=== PATIENT | male | born 1940 | race Caucasian/White ===

== ENCOUNTER 2018-06-28 14:57 | Emergency (ER) | payer MEDICARE ==
[2018-06-28] MEDS ORDERED: Acetaminophen TAB* 325 MG PO ONE (16:37)
[2018-06-28 17:43] VITALS: BP 144/90
[2018-06-28] MEDS ORDERED: Tetan/Diph/Pertus SYR(Tdap)* 0.5 ML SYR(BOOSTRIX) use SYR IM ONE ×2 (17:43→17:45)
--- NOTE | 2018-06-28 17:50 | ED ---
Adult Trauma - HPI Summary HPI Summary: A 77 y/o male accompanied by family presents to [facility] with a chief complaint of right shoulder pain post mechanical fall at 14:15 today. He reports that he is on bloodthinners. He denies CP, SOB, headaches or LOC. It is unknown when his last tetanus shot was. At triage he rated his pain as a 9/10 in severity. Vital signs while in room HR: 86 bpm, O2 Sat: 97, BP: 177/98. 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 of Injury: Fall Ambulatory at the Scene: Yes Loss of Consciousness: no loss of consciousness Onset/Duration: Started Hours Ago, Still Present Onset of Pain: Hours, Post Accident, Prior to Arrival Onset Severity: Severe Current Severity: Severe Pain Intensity: 9 Pain Scale Used: 0-10 Numeric Location: Other - right shoulder Character: Sharp Aggravating Factor(s): Nothing Alleviating Factor(s): Nothing Associated Signs & Symptoms: Negative: SOB, Chest Pain, Fever - Allergy/Home Medications Allergies/Adverse Reactions: Allergies Allergy/AdvReac Type Severity Reaction Status Date / Time ciprofloxacin Allergy Anaphylatic Verified 06/28/18 16:22 Shock Home Medications: Home Medications Aspirin 81 mg CHEW TAB* [Aspirin Low Dose TAB*] 81 mg PO DAILY 06/28/18 [ History Confirmed 06/28/18] PMH/Surg Hx/FS Hx/Imm Hx Endocrine/Hematology History: Reports: Hx Diabetes Denies: Hx Anticoagulant Therapy, Hx Thyroid Disease Cardiovascular History: Reports: Hx Hypertension Respiratory History: Denies: Hx Asthma, Hx Chronic Obstructive Pulmonary Disease (COPD) GI History: Denies: Hx Ulcer - Cancer History Cancer Type, Location and Year: prostate - Surgical History Surgery Procedure, Year, and Place: left hip replacement, left sided neck mole removal. hernia repair. Infectious Disease History: No Infectious Disease History: Denies: Hx Clostridium Difficile, Hx Hepatitis, Hx Human Immunodeficiency Virus (HIV), Hx of Known/Suspected MRSA, Hx Shingles, Hx Tuberculosis, Hx Known/ Suspected VRE, Hx Known/Suspected VRSA, History Other Infectious Disease, Traveled Outside the [place] in Last 30 Days - Social History Alcohol Use: None Substance Use Type: Reports: None Smoking Status (MU): Former Smoker Review of Systems Negative: Fever Negative: Chest Pain Negative: Shortness Of Breath Positive: Arthralgia - right sided shoulder pain Neurological: Negative - LOC Negative: Headache All Other Systems Reviewed And Are Negative: Yes Physical Exam - Summary Physical Exam Summary: GENERAL: Patient is a well-developed and nourished M who is lying comfortable in the stretcher. Patient is not in any acute respiratory distress. HEAD AND FACE: Normocephalic EYES: PERRLA, EOMI x 2. EARS: Hearing grossly intact. MOUTH: Oropharynx within normal limits. NECK: Supple, trachea is midline, no adenopathy, no JVD, no carotid bruit. CHEST: Symmetric, no tenderness at palpation LUNGS: Clear to auscultation bilaterally. No wheezing or crackles. CVS: Regular rate and rhythm, S1 and S2 present, no murmurs or gallops appreciated. ABDOMEN: Soft, non-tender. Bowel sounds are normal. No abdominal abnormal pulsations. EXTREMITIES: TTP right shoulder ROM limited secondary to pain, abrasion elbow, no edema, no cyanosis or clubbing. NEURO: Alert and oriented x 3. No acute neurological deficits. Speech is normal and follows commands. Triage Information Reviewed: Yes Vital Signs On Initial Exam: Initial Vitals Temp Pulse Resp BP Pulse Ox 98.7 F 92 18 155/91 98 06/28/18 15:03 06/28/18 15:03 06/28/18 15:03 06/28/18 15:03 06/28/18 15:03 Vital Signs Reviewed: Yes - Carlos Coma Scale Best Eye Response: 4 - Spontaneous Best Motor Response: 6 - Obeys Commands Best Verbal Response: 5 - Oriented Coma Scale Total: 15 Diagnostics - Vital Signs Vital Signs Temp Pulse Resp BP Pulse Ox 06/28/18 17:41 81 144/90 96 06/28/18 17:18 79 96 06/28/18 16:51 78 139/81 98 06/28/18 16:20 89 177/98 97 06/28/18 16:17 86 97 06/28/18 15:03 98.7 F 92 18 155/91 98 - Laboratory Lab Statement: Any lab studies that have been ordered have been reviewed, and results considered in the medical decision making process. - Radiology shoulder x-ray Radiology Interpretation Completed By: Radiologist Summary of Radiographic Findings: AC joint arthritis without fracture. ED physician has reviewed this imaging report. - CT Brain CT Interpretation Completed By: Radiologist Summary of CT Findings: NO EVIDENCE FOR ACUTE INTRACRANIAL ABNORMALITY. ED physician has reviewed this imaging report. upper extremity CT Interpretation Completed By: Radiologist Summary of CT Findings: 1. SUPERIOR SUBLUXATION OF THE HUMERAL HEAD LIKELY RELATED TO UNDERLYING ROTATOR CUFF. TEAR. THIS CAN BE FURTHER EVALUATED WITH AN OUTPATIENT MRI OF THE SHOULDER CLINICALLY. NEEDED. 2. NO FRACTURE IS SEEN. 3. MODERATE OSTEOARTHRITIC CHANGE. 4. 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 ED physician has reviewed this imaging report. Re-Evaluation - Re-Evaluation First Eval Re-Evaluation Time: 17:50 Change: Improved Comment: Discussed results and discharge Adult Trauma Course/Dx - Course Course Of Treatment: A 77 y/o male accompanied by family presents to [facility] with a chief complaint of right shoulder pain post mechanical fall at 14:15 today, The physical exam revealed TTP right shoulder ROM limited secondary to pain, abrasion elbow. Brain CT impression: NO EVIDENCE FOR ACUTE INTRACRANIAL ABNORMALITY. Shoulder x-ray impression: AC joint arthritis without fracture. Upper extremity CT impression: 1. SUPERIOR SUBLUXATION OF THE HUMERAL HEAD LIKELY RELATED TO UNDERLYING ROTATOR CUFF. TEAR. THIS CAN BE FURTHER EVALUATED WITH AN OUTPATIENT MRI OF THE SHOULDER CLINICALLY. NEEDED. 2. NO FRACTURE IS SEEN. 3. MODERATE OSTEOARTHRITIC CHANGE. 4. 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 In the ED course the patient was given Tylenol PO and Boostrix IM. The patient will be discharged. I discussed results with patient and he reports feeling better. He is hemodynamically stable and safe for discharge. Strict return precautions given and he will otherwise follow up with his PCP. - Diagnoses Provider Diagnoses: Rotator cuff tear Discharge - Sign-Out/Discharge Documenting (check all that apply): Patient Departure - DC Patient Received Moderate/Deep Sedation with Procedure: No - Discharge Plan Condition: Stable Disposition: HOME Patient Education Materials: Rotator Cuff Injury (ED) Referrals: Carter Greco MD [Medical Doctor] - Hira Duran MD [Primary Care Provider] - (1-3 days) Additional Instructions: Follow up with orthopedics. RETURN TO THE EMERGENCY DEPARTMENT FOR CHANGING OR WORSENING SYMPTOMS. - Billing Disposition and Condition Condition: STABLE Disposition: Home - Attestation Statements Document Initiated by Scribe: Yes Documenting Scribe: Ruperto Hernandez Provider For Whom Scribe is Documenting (Include Credential): Km Bishop MD Scribe Attestation: I, Ruperto Hernandez, scribed for Km Bishop MD on 06/29/18 at 0924. Scribe Documentation Reviewed: Yes Provider Attestation: The documentation as recorded by the [email or web address] accurately reflects the service I personally performed and the decisions made by me, Sekou Bishop MD Status of Scribe Document: Viewed
== END 2018-06-28 18:04 | disposition home or self-care (01) ==
LOC: ED 14:57
DX: M75.101 Unspecified rotator cuff tear or rupture of right shoulder, not specified as traumatic (principal); Z79.82 Long term (current) use of aspirin; E11.9 Type 2 diabetes mellitus without complications; I10 Essential (primary) hypertension; Z85.46 Personal history of malignant neoplasm of prostate; Z87.891 Personal history of nicotine dependence; Z23 Encounter for immunization
CPT/HCPCS: 70450; 90471; 90715; 99283; A9270-GY

== ENCOUNTER 2018-07-07 08:33 | Inpatient (IN) | payer MEDICARE ==
[2018-07-07] MEDS ORDERED: NS 0.9% 1000 ML** 1,000 ML IV ONE (09:18)
--- NOTE | 2018-07-07 09:21 | ED ---
Complex/Multi-Sys Presentation - HPI Summary HPI Summary: PT. is a 77 y.o male who presents to the ER for general fatigue and cough x several days. Family states pt. was seen in ED last week after a fall and has not been feeling well since. He was seen at an a few days ago and had a negative CXR and was started on doxycycline. Family brings pt in today because he is feeling no better and has been very weak with a poor oral intake. Pt. denies CP, SOB, abd. pain, V/D, urinary sxs. Past hx of sarcoidosis, DM, HTN. Sxs are moderate in severity. No current modifying factors. - History Of Current Complaint Chief Complaint: EDGeneral Time Seen by Provider: 07/07/18 08:44 Hx Obtained From: Patient, Family/Twister Tender - Allergies/Home Medications Allergies/Adverse Reactions: Allergies Allergy/AdvReac Type Severity Reaction Status Date / Time ciprofloxacin Allergy Anaphylatic Verified 07/07/18 08:41 Shock Home Medications: Home Medications Atorvastatin* [Lipitor*] 40 mg PO DAILY 07/07/18 [History Confirmed 07/07/18] Calcium Carbonate/Vitamin D3 [Calcium 600 + Vit D Tablet] 1 each PO DAILY [History Confirmed 07/07/18] Doxycycline Hyclate 100 mg PO DAILY 07/07/18 [History Confirmed 07/07/18] PMH/Surg Hx/FS Hx/Imm Hx Previously Healthy: Yes Endocrine/Hematology History: Reports: Hx Diabetes Denies: Hx Anticoagulant Therapy, Hx Thyroid Disease Cardiovascular History: Reports: Hx Hypertension Respiratory History: Denies: Hx Asthma, Hx Chronic Obstructive Pulmonary Disease (COPD) GI History: Denies: Hx Ulcer - Cancer History Cancer Type, Location and Year: prostate - Surgical History Surgery Procedure, Year, and Place: left hip replacement, left sided neck mole removal. hernia repair. Infectious Disease History: No Infectious Disease History: Denies: Hx Clostridium Difficile, Hx Hepatitis, Hx Human Immunodeficiency Virus (HIV), Hx of Known/Suspected MRSA, Hx Shingles, Hx Tuberculosis, Hx Known/ Suspected VRE, Hx Known/Suspected VRSA, History Other Infectious Disease, Traveled Outside the [place] in Last 30 Days - Family History Known Family History: Positive: Non-Contributory - Social History Occupation: Retired Lives: With Family Alcohol Use: None Substance Use Type: Reports: None Smoking Status (MU): Former Smoker Review of Systems Constitutional: Negative Eyes: Negative ENT: Negative Cardiovascular: Negative Negative: Chest Pain Positive: Cough. Negative: Shortness Of Breath Gastrointestinal: Negative Negative: Abdominal Pain, Vomiting, Diarrhea Genitourinary: Negative Positive: Other - shoulder pain from recent fall Skin: Negative Neurological: Negative Negative: Headache, Weakness, Paresthesia, Numbness, Syncope, Slurred Speech All Other Systems Reviewed And Are Negative: Yes Physical Exam Vital Signs On Initial Exam: Initial Vitals Temp Pulse Resp BP Pulse Ox 97.9 F 98 16 144/93 95 07/07/18 08:35 07/07/18 08:35 07/07/18 08:35 07/07/18 08:35 07/07/18 08:35 Diagnostics - Vital Signs Vital Signs Temp Pulse Resp BP Pulse Ox 07/07/18 08:35 97.9 F 98 16 144/93 95 - Laboratory Result Diagrams: 07/09/18 06:45 07/09/18 06:45 Lab Statement: Any lab studies that have been ordered have been reviewed, and results considered in the medical decision making process. Complex Multi-Symp Course/Dx Course Of Treatment: Pt. presenting for worsening cough and weakness. He is afebrile with stable VS. Pt. started on IV fluids. Labs show mild leukocytosis. CMP shows signficant electrolyte imbalance, Na 120, Cl 87, Ca 7.6. Ddimeer elevated. CXR shows right sided infiltrate. ECG done at 1016 shows afib at a rate of 118bpm, normal axis, no STEMI. CTA obtained to r/o PE and was negative for PE. Pt. was given IV rocephin and zithromax in ED. I spoke with hospitalist , Dr. Sotomayor, and she accepts pt. for admission. - Diagnoses Differential Diagnoses/HQI/PQRI: Aspiration, Cardiac Ischemia, Metabolic Abnormality, Sepsis, Urinary Tract Infection Provider Diagnoses: Hyponatremia, Pneumonia - Critical Care Time Critical Care Time: 30-74 min - 30 minutes including direct pt. care and consultation. Excludes billable procedures. Discharge - Sign-Out/Discharge Documenting (check all that apply): Patient Departure Patient Received Moderate/Deep Sedation with Procedure: No - Discharge Plan Condition: Stable Disposition: ADMITTED TO [facility] - Billing Disposition and Condition Condition: STABLE Disposition: Admitted to [facility] - Attestation Statements Provider Attestation: I was available for consult. This patient was seen by the MAME. The patient was not presented to, seen by, or examined by me. -Sabine
[2018-07-07 10:00] LABS: ABS Basophils 0 10^3/ul (0-0.2); ABS Eosinophils 0 10^3/ul (0-0.6); ABS Lymphocytes 0.6 10^3/ul (1.0-4.8); ABS Monocytes 0.9 10^3/ul (0-0.8); ABS Neutrophils 10.2 10^3/ul (1.5-7.7); ABS Nucleated RBC 0 10^3/ul; Eosinophil % 0.1 %; Hematocrit 35 % (36-46); Hemoglobin 11.8 g/dL (14.0-18.0); Lymphocyte % 5.2 %; Mean Corpuscular HGB Conc 34 g/dL (31-36); Mean Corpuscular Hemoglobin 29 pg (27-31); Mean Corpuscular Volume 88 fL (80-94); Mean Platelet Volume 7.4 fL (7.4-10.4); Nucleated Red Blood Cells % 0.1; Platelet Count 408 10^3/uL (150-450); Red Blood Count 4.01 10^6 /uL (4.18-5.48); Red Cell Distribution Width 14 % (10.5-15); White Blood Count 11.8 10^3/uL (3.5-10.8)
[2018-07-07 10:05] LABS: Activated Partial Thrombo Time 36.6 seconds (26.0-36.3); INR 2.07 (0.77-1.02)
[2018-07-07 10:09] LABS: ALT 198 U/L (7-52); AST 181 U/L (13-39); Albumin 2.8 g/dL (3.2-5.2); Albumin/Globulin Ratio 0.9 (1-3); Alkaline Phosphatase 91 U/L (34-104); BUN/Creatinine Ratio 34.5 (8-20); Blood Urea Nitrogen 30 mg/dL (6-24); CO2 Carbon Dioxide 22 mmol/L (22-32); Calcium 8.2 mg/dL (8.6-10.3); Chloride 85 mmol/L (101-111); EGFR African American 102.4 (>60); EGFR Non-African American 84.6 (>60); Globulin 3.2 g/dL (2-4); Glucose 313 mg/dL (70-100); Magnesium 1.2 mg/dL (1.9-2.7); Potassium 3.8 mmol/L (3.5-5.0)
[2018-07-07] MEDS ORDERED: ED cefTRIAXone 1 GM/50 ML 1 GM/50 ML PREMIX.SET IVPB ONE (10:09)
[2018-07-07] MEDS ORDERED: Azithromycin 500 mg/250 ml 500 MG/250 ML PREMIX.SET IVPB ONE ×2 (10:09→11:12)
[2018-07-07] MEDS ORDERED: Magnesium Oxide TAB* 400 MG PO ONE (10:12)
[2018-07-07 10:14] LABS: Anion Gap 12 mmol/L (2-11); Sodium 119 mmol/L (135-145)
[2018-07-07 10:14] LABS: Influenza A Molecular NEGATIVE (Negative); Influenza B Molecular NEGATIVE (Negative)
[2018-07-07] MEDS ORDERED: Iodixanol* (CONTRAST) 320 MG/ML 100 ML SDV IV ONE ×2 (10:17→13:46)
[2018-07-07] MEDS ORDERED: NS 0.9% 1000 ML** 400 ML IV SCH (11:00)
[2018-07-07] MEDS ORDERED: cefTRIAXone(*) 1 GM ADVAN/BAG ONE (11:11)
[2018-07-07 11:35] LABS: Troponin I 0.04 ng/mL (<0.04)
[2018-07-07 12:14] LABS: BUN/Creatinine Ratio 39.1 (8-20); Calcium 7.7 mg/dL (8.6-10.3); EGFR African American 133.8 (>60); EGFR Non-African American 110.6 (>60); Potassium 3.6 mmol/L (3.5-5.0)
[2018-07-07] MEDS ORDERED: Acetaminophen TAB* 325 MG PO PRN (14:03)
[2018-07-07] MEDS ORDERED: Dextrose 50% Syringe 50 ML* 25 GM/50 ML SYRINGE IV PUSH PRN (14:05)
[2018-07-07] MEDS: Enoxaparin(*) 40 MG/0.4 ML SYR SUBCUT SCH (16:24)
[2018-07-07 16:27] LABS: Troponin I 0.01 ng/mL (<0.04)
[2018-07-07 16:36] LABS: Anion Gap 8 mmol/L (2-11); BUN/Creatinine Ratio 36.9 (8-20); Blood Urea Nitrogen 24 mg/dL (6-24); C Reactive Protein 231.31 mg/L (<8.01); CO2 Carbon Dioxide 25 mmol/L (22-32); Calcium 7.9 mg/dL (8.6-10.3); Chloride 87 mmol/L (101-111); EGFR African American 143.4 (>60); EGFR Non-African American 118.5 (>60); Glucose 183 mg/dL (70-100); Potassium 3.4 mmol/L (3.5-5.0); Sodium 120 mmol/L (135-145)
[2018-07-07 16:49] LABS: % Iron Saturation 17 % (15-55); Iron 31 ug/dL (50-212); Total Iron Binding Capacity 186 mcg/dL (250-450); Transferrin 133 mg/dL (203-362)
[2018-07-07 16:55] LABS: TSH (Thyroid Stimulating Horm) 0.77 mcIU/mL (0.34-5.60)
[2018-07-07 17:06] LABS: Vitamin D Total 25(OH) 23.8 ng/mL (20-50)
[2018-07-07] MEDS: Insulin LISPRO* 1 UNITS UNIT SUBCUT SCH ×2 (18:12→21:14)
--- NOTE | 2018-07-07 19:26 | HP ---
HISTORY AND PHYSICAL: DATE OF ADMISSION: 07/07/18 PRIMARY CARE PROVIDER: Dr. Hira Duran. CHIEF COMPLAINT: Shortness of breath and cough. STRATEGIC ANALYST: Carissa Hernandez, his . CODE STATUS: Full. SOURCE OF INFORMATION: HPI is obtained from the patient and review of history. He is an adequate historian. HISTORY OF PRESENT ILLNESS: This is a 77-year-old male with a past medical history of sow-adfnmeg-npcjlcidb diabetes; hypertension; hyperlipidemia; atrial fibrillation, on anticoagulation; prostate cancer, status post radiation; melanoma, status post excision only; sarcoid diagnosis received 22 years ago, presumed to be quiescent and in remission as he has never received a treatment, who presented to the emergency room today with hemoptysis and cough, chest pain for 4 days. The patient and his said he has about a 7-day period of decline since the fall that occurred exactly a week ago. He said that he was carrying coal into the house and tripped and fell and actually had presented to the emergency room at that time and had a dislocated right shoulder. He went home and has basically had a poor appetite ever since. He assumed it was all from his shoulder pain, but about 4 days ago, he started having hiccups and a scant cough and then the cough continued to the point where it was barking and frequent. He went to [facility], who said that he most likely had an upper respiratory infection and then 1 day prior to admission, his cough and fatigue worsened and he actually had 1 episode of scant hemoptysis in his clear and yellow mixed sputum. The day after this occurred, they decided to present to the emergency room. On review of systems, he does endorse weakness and fatigue. No headaches. No vision changes. He does endorse difficulty swallowing. No chest pain. No palpitations. No orthopnea. Positive for cough. Negative pleuritic chest pain. Negative for nausea, vomiting, diarrhea , or abdominal pain. It is positive for hiccups. No dysuria or hematuria. No skin changes. Denies subjective fevers or chills in the home. No new neurologic complaints such as differences in sensation or weakness in any specific limb. EMERGENCY ROOM COURSE: The patient arrived with stable vital signs. Blood pressure 133/79; afebrile; heart rate, atrial fibrillation with rate in the low 100s. Labs showed a sodium to 119 with a glucose of 339 which corrects to 124, chloride 85, creatinine stable, glucose 313. Also had a new transaminitis with AST 181, ALT 198, alk phos 91. Initial troponin was elevated mildly at 0.04. Total protein and albumin are low at 6 and 2.8. Flu is negative. Rapid strep was negative. His D-dimer was collected for the hemoptysis and was elevated at greater than 1000. His INR is elevated at 2. ESR is mildly elevated at 10.2. Has mild leukocytosis to 11.8 and H and H is 11.8 and 35. CTA was performed secondary to the hemoptysis and positive D-dimer, which shows bilateral broncho- lobar pneumonia and also sarcoid stage 2. The chest x-ray was completed, which shows patchy infiltrate to bilateral lower lobes. EKG was done, which showed atrial fibrillation with no active signs of ischemia. The hospitalist team was asked to evaluate him for further treatment and plan. PAST MEDICAL HISTORY: Yrl-yrtiscv-hubgcugje diabetes; hypertension; hyperlipidemia; atrial fibrillation, on anticoagulation; prostate cancer, status post radiation; melanoma, status post excision; sarcoidosis diagnosed 22 years ago, presumed to be in remission and quiescent. PAST SURGICAL HISTORY: Status post left total hip, status post hernia repair, status post melanoma excision on left neck. ALLERGIES: Include allergy to FLUOROQUINOLONES. FAMILY HISTORY: His father from a stroke. His mother is ; she had a history of CAD and uterine cancer. SOCIAL HISTORY: He is a retired otr owner operator truck driver. He lives at home with his . Tobacco: He is a lifetime nontobacco user. Alcohol: He is a scant-to-no alcohol user. Illicits: Denies. REVIEW OF SYSTEMS: As per HPI. PHYSICAL EXAMINATION GENERAL APPEARANCE: This is a very pleasant, well-appearing man, sitting up in bed, in no acute distress. VITAL SIGNS: At the time of physical exam, a blood pressure of 138/83, pulse rate of 106, oxygen saturation is 94% on room air, respiratory rate is in the teens. HEENT: He is normocephalic, atraumatic. His pupils are equal and reactive. His extraocular muscles are intact. His oropharynx shows dry mucous membranes with no other lesions. NECK: Supple with no supraclavicular or cervical lymphadenopathy. LUNGS: He has normal work of breathing. He has bilateral crackles to mid lungs and no rhonchi, wheezes, referred upper airway sounds. CARDIAC: He is irregularly irregular with no murmurs, rubs, or gallops. ABDOMEN: Belly is soft, nontender, nondistended. A 7 cm span liver. Normoactive bowel sounds in all 4 quadrants. No evidence of hepatosplenomegaly or signs of decompensated liver disease. MUSCULOSKELETAL: He moves all 4 extremities spontaneously with the exception of right shoulder, which as per HPI has recent subluxation. NEUROLOGIC: His cranial nerves II through XII are intact. He is A and O x3. He has no focal neurologic deficits on gross neuro exam. SKIN: He has scattered seborrheic keratosis, but no other obvious rashes or lesions. DIAGNOSTIC STUDIES/LAB DATA: He has a CBC that shows white blood cell count 11.8, hemoglobin 11.8, hematocrit 35, platelets of 408. INR is 2.07, APTT is 36 , D-dimer is 1047. Sodium is 121, potassium is 3.6, chloride 88, carbon dioxide is 22, anion gap is 11, BUN is 27, creatinine 0.69, glucose 244. Hemoglobin A1c is 7.8, calcium is 7.7. AST is 181, ALT is 198, alkaline phosphatase is 91. Troponin I is 0.04. Magnesium 1.2. Total protein 6, albumin is 2.8. Flu is negative and rapid strep is negative. Imaging includes a chest x-ray, which shows bilateral infiltrates with right mid greater than left, superimposed on sarcoidosis. CTA was performed, which showed no pulmonary embolus, but did show bronchopneumonia superimposed on stage 2 sarcoidosis, also a small left dependent pleural effusion. EKG showed atrial fibrillation with no evidence of ischemia. All images, labs, and electrocardiogram are reviewed by myself. ASSESSMENT AND PLAN: This is a 77-year-old male with a history of diabetes; hypertension; atrial fibrillation, on anticoagulation; distant history of prostate cancer and melanoma and distant history of sarcoid, presumed quiescent , who is presenting to the emergency room with hemoptysis and cough, found to have bilateral pneumonia, hyponatremia, new transaminitis and a mild troponin elevation. 1. Pneumonia. The patient displays bronchopneumonia with leukocytosis. He had received ceftriaxone and azithromycin in the emergency room. We will continue this for presumed community-acquired pneumonia. Blood cultures were obtained. Urine Legionella and urine Strep pneumo antigen were sent. The patient does not have an oxygen requirement. We will continue to monitor. 2. Hyponatremia. Currently hyponatremia to 124. He is status post 1.5 L in the emergency room and is not responsive after 4 hours. This is more concerning for SIADH. We will obtain urinalysis and urine sodium and repeat BMP to determine if this is hypovolemic on SIADH or both. He has known pulmonary disease, which can cause SIADH. 3. Transaminitis. This is new to AST and ALT in the 100s. We will order a CT of the abdomen and pelvis with contrast to eval for hepatic sarcoid or any other pathology. We also seen a hep panel and iron panel. This is a non- cholestatic pattern and no concern for gallbladder or pancreatic pathology. 4. Sarcoid. This is presumed quiescent. We will check for baseline labs, TSH , vitamin D 125. Pulmonary consult was placed to determine if there is a component of sarcoid flare in this current presentation of pneumonia. We will hold on starting steroids at this time. 5. Hyperglycemia and diabetes. We will check an A1c and place him on point-of - care glucose and lispro sliding scale while in the hospital while holding metformin and glipizide. 6. Atrial fibrillation, on anticoagulation. Continue rate control. We are going to hold his Xarelto for 1 day to determine the frequency of his hemoptysis to determine if it is frequent enough to warrant holding all a.c. together, but would consider resuming on 07/08/18. We will place on subcu Lovenox as a temporizing measure. 7. Elevated troponin. Mild elevation in troponin on admission that without EKG changes most consistent with demand ischemia. We will trend trops while he is here and if elevated, we will consider echocardiogram. 8. Prostate cancer and melanoma history. He has no active concerns for new oncologic process at this time, though ongoing workup will be continued and thus we will consider these have no active issues. 9. DVT prophylaxis. As above. He will be placed on xto-qppcnotlw-rmuoyz heparin until the decision to restart his Xarelto has been made. 10. Diet. He is on a carb-consistent diet. 11. Code status. He is full code. 12. Disposition. This patient is stable for admission to medical floor [address] [place] [address]. Plan of care was reviewed by the patient and his family and they are in agreeance with plan of care. TIME SPENT: Forty five minutes were spent in the planning of this admission and H and P with over half of that spent directly at the bedside with the patient, providing direct patient care. [id number]/CPS #: [id number] JUDITHD
[2018-07-07] MEDS ORDERED: Al Hydrox/Mg Hydrox/Simet LIQ* 30 ML UDC PO PRN (19:48)
--- NOTE | 2018-07-07 19:58 | CONS ---
PULMONARY CONSULTATION REPORT: DATE OF CONSULT: 07/07/18 - ROOM #407 CONSULTATION REQUESTED BY: Dr. Zainab Sotomayor. REASON FOR CONSULT: Evaluation of abnormal CT chest. HISTORY OF PRESENT ILLNESS: The patient is a 77-year-old male, former smoker, with history of sarcoidosis, melanoma, prostate cancer. The patient was brought in by family for evaluation of cough and hemoptysis. The patient has been having cough for the past 4 to 5 days. No fevers or chills. Cough is productive of thick phlegm. He was noted to have streaks of blood in the cough and he was taken to the urgent care. He was sent to the emergency room from the urgent care. Further evaluation in the emergency room included chest x-ray and CTA of the chest. I personally reviewed chest x-ray with the patient and family today - the patient with airspace opacities predominantly in the right lung. CTA did not reveal any evidence of filling defects, showed evidence of diffuse airspace opacities in the mid and lower lung zones with areas of dense consolidation. Multiple mediastinal and hilar nodes, some with calcification were seen. I have compared the scan with his prior CT from 2006. The patient at that time noted to have nodular densities bilaterally, some in the subpleural region. The patient also with significant mediastinal adenopathy and some calcified lymphadenopathy at that time. The patient also noted to have elevated white count and anemia with hemoglobin of 11.8. His sodium was 111 when he came in and was initiated on IV hydration. Repeat sodium shown to be around 121. The patient also with evidence of elevated AST and ALT. Alk phos was within normal limits. His calcium was low. Hemoglobin A1c was elevated. The patient was initiated on antibiotics for community-acquired pneumonia. He was admitted for close observation. He does not appear to be in any significant distress. Has not been requiring oxygen. PAST MEDICAL HISTORY: 1. Diabetes. 2. Hypertension. 3. Sarcoidosis. 4. Prostate cancer. 5. Melanoma. PAST SURGICAL HISTORY: 1. Left hip replacement. 2. Left-sided mole removal. 3. Hernia repair. MEDICATIONS AT HOME: 1. Metformin. 2. Glipizide. 3. Amlodipine. 4. Rivaroxaban. 5. Multivitamins. 6. Metoprolol. 7. Magnesium citrate. 8. Lisinopril. 9. Doxycycline, recently started in the urgent care. 10. Calcium and vitamin D3. 11. Lipitor. 12. Aspirin. 13. Acetaminophen. ALLERGIES: CIPROFLOXACIN. FAMILY HISTORY: Reviewed and noncontributory to current complaint. SOCIAL HISTORY: Former smoker. No history of alcohol or drug abuse. REVIEW OF SYSTEMS: All 14 systems reviewed and as per HPI. PHYSICAL EXAM: The patient is sitting in bed, in no apparent distress. Vital Signs: Temperature 98.8, pulse 117 beats per minute, respiratory rate 18 per minute, O2 sat 92% on room air, blood pressure 128/85. HEENT: Pupils equal, reactive to light. Mucous membranes moist. Lungs: Distant breath sounds. No wheeze or crackles on auscultation. Cardiovascular: S1, S2 present. Abdomen: Soft, nontender, nondistended. Bowel sounds present. Skin: No rash or bruise. Neuro: Alert, awake, oriented x3. No focal deficits. DIAGNOSTIC STUDIES/LAB DATA: WBC count 11.8, hemoglobin 11.8, hematocrit 35 with normal MCV. INR elevated at 2.07. Sodium 121 on repeat labs, potassium 3.6, chloride 88, bicarb 22, BUN 27, creatinine 0.69. Calcium 8.2 on admission , around 7.9 on repeat labs. CRP 231. Troponin x1 elevated. Influenza A and B negative. Group B strep negative. CTA and chest x-ray as described above. Abdominal CT did reveal evidence of steatohepatitis without any hepatic lesions and evidence of diverticulosis. IMPRESSION AND RECOMMENDATIONS: 77-year-old male with prior history of sarcoidosis diagnosed 22 years ago after a biopsy as per the patient's , could not provide any further details; history of prior prostate cancer, status post radiation; history of melanoma, status post resection. The patient did not require treatment for sarcoidosis as per the patient's . He has been having cough recently. He recently had a fall on 06/28/18 where he hit and injured his chest and also hit his head. X-rays at that time did not reveal any fractures. The patient with cough over the past 4 to 5 days since the fall and also with an episode of hemoptysis. CT findings suggestive of airspace opacities bilaterally, unclear if pneumonia or reactivation of sarcoidosis. Given the history of trauma, also suspect possible lung contusion. The patient appears to be stable other than being little bit tachycardic. Denies significant pain or difficulty taking deep breaths. Oxygen saturation around 92% on room air. He has mild anemia. He has elevated LFTs of unclear etiology. I do not see any other evidence of sarcoidosis extra pulmonary ibarra at least with normal calcium levels and also with normal alk phos. If sarcoid were to involve liver, it would also cause elevated alk phos. CRP is definitely elevated , which could be from underlying infection. Troponin normalized. He does have significant hyponatremia of unclear etiology, could be from underlying pneumonia and resultant syndrome of inappropriate antidiuretic hormone secretion. He is not on any medications that would result in hyponatremia. Would manage as pneumonia and would continue with that treatment. Hold anticoagulation for now. Would repeat a CT scan in 6 weeks to ensure resolution. If findings are still noted, then would need a repeat biopsy for sarcoidosis and subsequent treatment. Thank you for allowing me to participate in the care of your patient. Will follow up with you. [id number] #: [id number] CHARLI
[2018-07-07] MEDS: Metoprolol Tartrate TAB* 25 MG PO SCH (21:11)
[2018-07-07] MEDS: Potassium Chlor TAB* 20 MEQ TAB.ER PO SCH (21:11)
[2018-07-07 22:19] LABS: Urine Appearance Cloudy; Urine Bacteria Absent (Absent); Urine Bilirubin Negative (Negative); Urine Blood Negative (Negative); Urine Color Yellow; Urine Glucose 2+(150 mg/dL) (Negative); Urine Ketones Negative (Negative); Urine Nitrite Negative (Negative); Urine Protein 2+(100 mg/dL) (Negative); Urine Red Blood Cell 1+(3-5/hpf) (Absent); Urine Specific Gravity 1.045 (1.010-1.030); Urine Urobilinogen Negative (Negative); Urine White Blood Cell Absent (Absent)
[2018-07-07 22:23] LABS: Urine Creatinine Concentration 70.65 mg/dL; Urine Potassium Concentration 34.5 mmol/L
[2018-07-08 05:56] LABS: ABS Basophils 0 10^3/ul (0-0.2); ABS Eosinophils 0 10^3/ul (0-0.6); ABS Lymphocytes 0.8 10^3/ul (1.0-4.8); ABS Monocytes 1.2 10^3/ul (0-0.8); ABS Neutrophils 9.4 10^3/ul (1.5-7.7); ABS Nucleated RBC 0 10^3/ul; Eosinophil % 0.2 %; Hematocrit 35 % (36-46); Lymphocyte % 6.9 %; Mean Corpuscular HGB Conc 34 g/dL (31-36); Mean Corpuscular Hemoglobin 30 pg (27-31); Mean Corpuscular Volume 88 fL (80-94); Mean Platelet Volume 7.5 fL (7.4-10.4); Nucleated Red Blood Cells % 0; Platelet Count 410 10^3/uL (150-450); Red Blood Count 3.99 10^6 /uL (4.18-5.48); Red Cell Distribution Width 14 % (10.5-15); White Blood Count 11.4 10^3/uL (3.5-10.8)
[2018-07-08 06:17] LABS: Albumin 2.7 g/dL (3.2-5.2); Albumin/Globulin Ratio 0.8 (1-3); BUN/Creatinine Ratio 30.2 (8-20); Calcium 7.9 mg/dL (8.6-10.3); EGFR African American 148.7 (>60); EGFR Non-African American 122.9 (>60); Globulin 3.2 g/dL (2-4); Indirect Bilirubin 0.5 mg/dL (0.3-1.0); Potassium 3.7 mmol/L (3.5-5.0); Total Bilirubin 0.7 mg/dL (0.2-1.0); Total Protein 5.9 g/dL (6.4-8.9)
[2018-07-08] MEDS: Insulin LISPRO* 1 UNITS UNIT SUBCUT SCH ×4 (08:39→21:33)
[2018-07-08] MEDS: Aspirin 81 mg CHEW TAB* 81 MG TAB.CHEW PO SCH (08:40)
[2018-07-08] MEDS: Potassium Chlor TAB* 20 MEQ TAB.ER PO SCH ×2 (08:40→21:32)
[2018-07-08] MEDS: Atorvastatin* 40 MG TAB PO SCH (08:40)
[2018-07-08] MEDS: Metoprolol Tartrate TAB* 25 MG PO SCH ×2 (08:40→21:32)
[2018-07-08] MEDS: Lisinopril TAB* 10 MG PO SCH (08:40)
[2018-07-08] MEDS ORDERED: amLODIPine TAB* 5 MG PO SCH (09:00)
[2018-07-08] MEDS: Azithromycin IV(*) 250 MG in NS 0.9% 250 ML* 250 ML IVPB SCH (09:25)
[2018-07-08 10:47] LABS: Hepatitis B Surface Antigen Nonreactive (Nonreactive)
[2018-07-08 11:03] LABS: Hepatitis C Antibody Nonreactive (Nonreactive)
[2018-07-08] MEDS: cefTRIAXone(*) 1 GM in NS 0.9% 50 ML* 50 ML IVPB SCH (15:30)
--- NOTE | 2018-07-08 16:18 | PN ---
Subjective Interval History: Sodium unchanged. Starting on fluid restriction today. reports pt has a history of low sodium that "didn't need treatment". Pt and (at bedside) report that patient is back at his baseline except for persistent fatigue. No fever or recent episodes of hemoptysis. Pt reports good appetite - denies n/v/c/d. No recent supplements, new medications, alcohol use. Given recent fall with shoulder pain, and now not using dominant arm, will have pt seen by OT. Also will be seen by PT given h/o fall. Objective Active Medications: Acetaminophen (Tylenol Tab*) 650 mg PO Q6HR PRN PRN Reason: PAIN Al Hydrox/Mg Hydrox/Simethicone (Maalox Plus*) 30 ml PO Q4H PRN PRN Reason: INDIGESTION Last Admin: 07/07/18 21:11 Dose: 30 ml Amlodipine Besylate (Norvasc Tab*) 5 mg PO DAILY [facility] [place] Last Admin: 07/08/18 08:40 Dose: 5 mg Aspirin (Aspirin 81 Mg Chew Tab*) 81 mg PO DAILY [facility] [place] Last Admin: 07/08/18 08:40 Dose: 81 mg Atorvastatin Calcium (Lipitor*) 40 mg PO DAILY [facility] [place] Last Admin: 07/08/18 08:40 Dose: 40 mg Dextrose (D50w Syringe 50 Ml*) 12.5 gm IV PUSH .FOR FS < 60 - SS PRN PRN Reason: FS < 60 Ceftriaxone Sodium 1 gm/ (Sodium Chloride) 50 mls @ 200 mls/hr IVPB Q24H [facility] [place] Last Admin: 07/08/18 15:30 Dose: 200 mls/hr Azithromycin 250 mg/ Sodium (Chloride) 250 mls @ 250 mls/hr IVPB DAILY [facility] [place] Stop: 07/12/18 08:59 Last Admin: 07/08/18 09:25 Dose: 250 mls/hr Insulin Glargine (Lantus(*)) 5 units SUBCUT Q24H [facility] [place] Insulin Human Lispro (Humalog*) 0 units SUBCUT ACHS [facility] [place]; Protocol Last Admin: 07/08/18 13:10 Dose: 6 units Lisinopril (Prinivil Tab*) 40 mg PO DAILY [facility] [place] Last Admin: 07/08/18 08:40 Dose: 40 mg Metoprolol Tartrate (Lopressor Tab*) 25 mg PO BID [facility] [place] Last Admin: 07/08/18 08:40 Dose: 25 mg Potassium Chloride (Klor Con Er Tab*) 20 meq PO BID [facility] [place] Last Admin: 07/08/18 08:40 Dose: 20 meq Rivaroxaban (Xarelto(*)) 20 mg PO DAILY [facility] [place] Vital Signs - 8 hr 07/08/18 11:15 Temperature 98.0 F Pulse Rate 67 Respiratory 20 Rate Blood Pressure 151/96 (mmHg) O2 Sat by Pulse 96 Oximetry Oxygen Devices in Use Now: None Appearance: reclining comfortably in bed chatting with Ears/Nose/Mouth/Throat: Mucous Membranes Moist Neck: NL Appearance and Movements; NL JVP Respiratory: - - bibasilar crackles, no wheeze, no accessory muscle use Cardiovascular: - - irreg irreg, no mgr Abdominal: - - soft, nontender, no guarding, negative Givens's sign Extremities: - - no LE edema, wwp Neurological: - - AOx3 although a little confused at times; appropriate responses; will not elevated R arm but sensation/strength intact distally Result Diagrams: 07/08/18 05:31 07/08/18 05:31 Microbiology and Other Data: Microbiology 07/07/18 13:33 Aerobic Blood Culture - Preliminary Blood Venous No Growth Day 1 Anaerobic Blood Culture - Preliminary No Growth Day 1 07/07/18 09:37 Group A Streptococcus Rapid Screen - Final Throat Specimen received for Rapid Strep A Molecular testing 07/07/18 09:37 Influenza Types A,B Antigen - Final Nasopharyngeal Specimen received for Influenza A/B Molecular testing Assess/Plan/Problems-Billing 77M with DM2, HTN, afib on AC, remote history of melanoma s/p excision, sarcoid in remission, prostate cancer, presents with cough, one episode of hemoptysis, and dyspnea, found with PNA on CT, hyponatremia, and new transaminitis. - Patient Problems (1) Pneumonia Comment: Presenting with SOB/cough, found with PNA by CT. 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 Did not change with IVF - could have initially had hypovolemia component as well (Renetta is low). TSH normal. - starting fluid restriction 07/08 - monitor BMP - check AM cortisol (although K low/normal) - treat underlying infx as above (3) Transaminitis Comment: Unclear etiology of isolated elevated transaminases, although patient does have HASTINGS, so this is most likely given otherwise negative work up (neg hemochromatosis screen, negative hep screen). Could have hypoperfusion in setting of infection, although pt with good BP on presentation. No new supplements or medications. No alcohol use. Pt adamantly denies GI symptoms and exam is benign. INR is elevated, as well, but this is most likely from rivaroxaban. - trend LFTs, abdominal exam (4) Sarcoid Comment: Quiescent. - pulm following (5) Diabetes Comment: Glucose control not great. - cont fingersticks and sliding scale - start on glargine 5u today - likely should not be on glipizide as outpatient - consider alternatives on DC - cont statin (6) Hypertension Comment: - cont home metoprolol, amlodipine, and lisinopril (7) Atrial fibrillation Current Visit: Yes Comment: - cont rate control with bb - restart rivaroxaban given stable Hgb and no further episodes of hemoptysis (8) DVT prophylaxis Comment: on therapeutic AC Status and Disposition: Inpatient until sodium improves. Will switch to PO abx when cultures result.
[2018-07-08] MEDS: Enoxaparin(*) 40 MG/0.4 ML SYR SUBCUT SCH (16:56)
[2018-07-08] MEDS ORDERED: Insulin GLARGINE(*) 1 UNITS UNIT SUBCUT SCH (17:00)
[2018-07-08] MEDS: Rivaroxaban TAB(*) 20 MG TAB PO SCH (17:26)
--- NOTE | 2018-07-08 18:19 | PN ---
Progress Note - Progress Note Date of Service: 07/08/18 - Pulm f/u note Note: Pt seen and examined at bedside. Pt reports feeling better, less tired. denies hemoptysis or cough Active Medications Generic Name Dose Route Start Last Admin Trade Name Freq PRN Reason Stop Dose Admin Acetaminophen 650 mg 07/07/18 14:03 Tylenol Tab* PO Q6HR PRN PAIN Al Hydrox/Mg Hydrox/Simethicone 30 ml 07/07/18 19:48 07/07/18 21:11 Maalox Plus* PO 30 ml Q4H PRN Administration INDIGESTION Amlodipine Besylate 5 mg 07/08/18 09:00 07/08/18 08:40 Norvasc Tab* PO 5 mg DAILY MELINA Administration Aspirin 81 mg 07/08/18 09:00 07/08/18 08:40 Aspirin 81 Mg Chew Tab* PO 81 mg DAILY MELINA Administration Atorvastatin Calcium 40 mg 07/08/18 09:00 07/08/18 08:40 Lipitor* PO 40 mg DAILY MELINA Administration Dextrose 12.5 gm 07/07/18 14:05 D50w Syringe 50 Ml* IV PUSH .FOR FS < 60 - SS PRN FS < 60 Ceftriaxone Sodium 1 gm/ 50 mls @ 200 mls/hr 07/08/18 15:00 07/08/18 15:30 Sodium Chloride IVPB 200 mls/hr Q24H MELINA Administration Azithromycin 250 mg/ Sodium 250 mls @ 250 mls/hr 07/08/18 09:00 07/08/18 09: 25 Chloride IVPB 07/12/18 08:59 250 mls/hr DAILY MELINA Administration Insulin Glargine 5 units 07/08/18 17:00 07/08/18 17:26 Lantus(*) SUBCUT 5 unit Q24H MELINA Administration Insulin Human Lispro 0 units 07/07/18 16:30 07/08/18 17:26 Humalog* SUBCUT 4 units ACHS MELINA Administration Protocol Lisinopril 40 mg 07/08/18 09:00 07/08/18 08:40 Prinivil Tab* PO 40 mg DAILY MELINA Administration Metoprolol Tartrate 25 mg 07/07/18 21:00 07/08/18 08:40 Lopressor Tab* PO 25 mg BID MELINA Administration Potassium Chloride 20 meq 07/07/18 21:00 07/08/18 08:40 Klor Con Er Tab* PO 20 meq BID MELINA Administration Rivaroxaban 20 mg 07/08/18 17:00 07/08/18 17:26 Xarelto(*) PO 20 mg DAILY MELINA Administration Vital Signs Temp Pulse Resp BP Pulse Ox 97.8 F 107 18 134/73 95 07/08/18 15:25 07/08/18 15:25 07/08/18 15:25 07/08/18 15:25 07/08/18 15:25 O/E: Pt in NAD HEENT: PERRLA, no JVD Lungs: Diminished air entry b/l, scaterred wheeze CVS: S1, S2+ Abd: Soft, BS+ Ext: Normal ROM Skin: No rash, seborrheic keratosis + Neuro: Alert, awake, no focal deficits Laboratory Results - last 24 hr 07/07/18 07/07/18 07/07/18 12:51 15:44 21:02 WBC RBC Hgb Hct MCV MCH MCHC RDW Plt Count MPV Neut % (Auto) Lymph % (Auto) [place] % (Auto) Eos % (Auto) Baso % (Auto) Absolute Neuts (auto) Absolute Lymphs (auto) Absolute Monos (auto) Absolute Eos (auto) Absolute Basos (auto) Absolute Nucleated RBC Nucleated RBC % Sodium Potassium Chloride Carbon Dioxide Anion Gap BUN Creatinine Est GFR ( Amer) Est GFR (Non-Af Amer) BUN/Creatinine Ratio Glucose POC Glucose (mg/dL) 216 H Calcium Total Bilirubin Direct Bilirubin Indirect Bilirubin AST ALT Alkaline Phosphatase Total Protein Albumin Globulin Albumin/Globulin Ratio Urine Color Yellow Urine Appearance Cloudy Urine pH 5.0 Ur Specific [place] 1.045 H Urine Protein 2+(100 mg/dl) A Urine Ketones Negative Urine Blood Negative Urine Nitrate Negative Urine Bilirubin Negative Urine Urobilinogen Negative Ur Leukocyte Esterase Negative Urine WBC (Auto) Absent Urine RBC (Auto) 1+(3-5/hpf) A Urine Bacteria Absent Hyaline Casts Present A Urine Osmolality Ur Creatinine Concen U Sodium Concentration Urine Potassium Ur Chloride Concentrat Urine Glucose 2+(150 mg/dl) A Hepatitis A IgM Ab Nonreactive Hep Bs Antigen Nonreactive Hep B Core IgM Ab Nonreactive Hepatitis C Antibody Nonreactive Hepatitis C Ab Index < 0.0 07/07/18 07/07/18 07/08/18 21:55 21:55 05:31 WBC 11.4 H RBC 3.99 L Hgb 12.0 L Hct 35 L MCV 88 MCH 30 MCHC 34 RDW 14 Plt Count 410 MPV 7.5 Neut % (Auto) 82.5 Lymph % (Auto) 6.9 [place] % (Auto) 10.3 Eos % (Auto) 0.2 Baso % (Auto) 0.1 Absolute Neuts (auto) 9.4 H Absolute Lymphs (auto) 0.8 L Absolute Monos (auto) 1.2 H Absolute Eos (auto) 0 Absolute Basos (auto) 0 Absolute Nucleated RBC 0 Nucleated RBC % 0 Sodium Potassium Chloride Carbon Dioxide Anion Gap BUN Creatinine Est GFR ( Amer) Est GFR (Non-Af Amer) BUN/Creatinine Ratio Glucose POC Glucose (mg/dL) Calcium Total Bilirubin Direct Bilirubin Indirect Bilirubin AST ALT Alkaline Phosphatase Total Protein Albumin Globulin Albumin/Globulin Ratio Urine Color Urine Appearance Urine pH Ur Specific [place] Urine Protein Urine Ketones Urine Blood Urine Nitrate Urine Bilirubin Urine Urobilinogen Ur Leukocyte Esterase Urine WBC (Auto) Urine RBC (Auto) Urine Bacteria Hyaline Casts Urine Osmolality 616 Ur Creatinine Concen 70.65 U Sodium Concentration 22 Urine Potassium 34.5 Ur Chloride Concentrat 43 Urine Glucose Hepatitis A IgM Ab Hep Bs Antigen Hep B Core IgM Ab Hepatitis C Antibody Hepatitis C Ab Index 07/08/18 07/08/18 07/08/18 05:31 07:45 12:09 WBC RBC Hgb Hct MCV MCH MCHC RDW Plt Count MPV Neut % (Auto) Lymph % (Auto) [place] % (Auto) Eos % (Auto) Baso % (Auto) Absolute Neuts (auto) Absolute Lymphs (auto) Absolute Monos (auto) Absolute Eos (auto) Absolute Basos (auto) Absolute Nucleated RBC Nucleated RBC % Sodium 120 L Potassium 3.7 Chloride 87 L Carbon Dioxide 23 Anion Gap 10 BUN 19 Creatinine 0.63 L Est GFR ( Amer) 148.7 Est GFR (Non-Af Amer) 122.9 BUN/Creatinine Ratio 30.2 H Glucose 186 H POC Glucose (mg/dL) 200 H 272 H Calcium 7.9 L Total Bilirubin 0.70 Direct Bilirubin 0.20 H Indirect Bilirubin 0.5 AST 159 H ALT 201 H Alkaline Phosphatase 101 Total Protein 5.9 L Albumin 2.7 L Globulin 3.2 Albumin/Globulin Ratio 0.8 L Urine Color Urine Appearance Urine pH Ur Specific [place] Urine Protein Urine Ketones Urine Blood Urine Nitrate Urine Bilirubin Urine Urobilinogen Ur Leukocyte Esterase Urine WBC (Auto) Urine RBC (Auto) Urine Bacteria Hyaline Casts Urine Osmolality Ur Creatinine Concen U Sodium Concentration Urine Potassium Ur Chloride Concentrat Urine Glucose Hepatitis A IgM Ab Hep Bs Antigen Hep B Core IgM Ab Hepatitis C Antibody Hepatitis C Ab Index 07/08/18 17:12 WBC RBC Hgb Hct MCV MCH MCHC RDW Plt Count MPV Neut % (Auto) Lymph % (Auto) [place] % (Auto) Eos % (Auto) Baso % (Auto) Absolute Neuts (auto) Absolute Lymphs (auto) Absolute Monos (auto) Absolute Eos (auto) Absolute Basos (auto) Absolute Nucleated RBC Nucleated RBC % Sodium Potassium Chloride Carbon Dioxide Anion Gap BUN Creatinine Est GFR ( Amer) Est GFR (Non-Af Amer) BUN/Creatinine Ratio Glucose POC Glucose (mg/dL) 228 H Calcium Total Bilirubin Direct Bilirubin Indirect Bilirubin AST ALT Alkaline Phosphatase Total Protein Albumin Globulin Albumin/Globulin Ratio Urine Color Urine Appearance Urine pH Ur Specific [place] Urine Protein Urine Ketones Urine Blood Urine Nitrate Urine Bilirubin Urine Urobilinogen Ur Leukocyte Esterase Urine WBC (Auto) Urine RBC (Auto) Urine Bacteria Hyaline Casts Urine Osmolality Ur Creatinine Concen U Sodium Concentration Urine Potassium Ur Chloride Concentrat Urine Glucose Hepatitis A IgM Ab Hep Bs Antigen Hep B Core IgM Ab Hepatitis C Antibody Hepatitis C Ab Index I/R: 77 y o M with DM2, HTN, afib on AC, remote history of melanoma s/p excision , Prostate cancer s/p XRT, sarcoid in remission,with cough, one episode of hemoptysis, and dyspnea being treated for PNA Pt with improvement in cough, SOB, no further episodes of hemoptysis Not requiring O2 CT chest with air space opacities and areas of dense consolidation Has remote h/o Sarcoidosis that was never treated Given clinical improvement with c/w management for PNA Hyponatremia- on fluid restriction OOB to chair as tolerated
[2018-07-09 07:05] LABS: Hematocrit 38 % (36-46); Hemoglobin 13.2 g/dL (14.0-18.0); Mean Corpuscular HGB Conc 35 g/dL (31-36); Mean Corpuscular Hemoglobin 31 pg (27-31); Mean Corpuscular Volume 88 fL (80-94); Mean Platelet Volume 7.4 fL (7.4-10.4); Platelet Count 490 10^3/uL (150-450); Red Blood Count 4.31 10^6 /uL (4.18-5.48); Red Cell Distribution Width 14 % (10.5-15); White Blood Count 13.1 10^3/uL (3.5-10.8)
[2018-07-09 07:33] LABS: Albumin 2.9 g/dL (3.2-5.2); Albumin/Globulin Ratio 0.8 (1-3); BUN/Creatinine Ratio 30.2 (8-20); Calcium 8.5 mg/dL (8.6-10.3); EGFR African American 148.7 (>60); EGFR Non-African American 122.9 (>60); Globulin 3.6 g/dL (2-4); Indirect Bilirubin 0.6 mg/dL (0.3-1.0); Magnesium 1.4 mg/dL (1.9-2.7); Potassium 3.9 mmol/L (3.5-5.0); Total Bilirubin 0.7 mg/dL (0.2-1.0); Total Protein 6.5 g/dL (6.4-8.9)
[2018-07-09] MEDS: Azithromycin IV(*) 250 MG in NS 0.9% 250 ML* 250 ML IVPB SCH (08:09)
[2018-07-09] MEDS: Insulin LISPRO* 1 UNITS UNIT SUBCUT SCH ×4 (08:09→21:31)
[2018-07-09] MEDS: Rivaroxaban TAB(*) 20 MG TAB PO SCH (08:10)
[2018-07-09] MEDS: Atorvastatin* 40 MG TAB PO SCH (08:10)
[2018-07-09] MEDS: Lisinopril TAB* 10 MG PO SCH (08:10)
[2018-07-09] MEDS: Potassium Chlor TAB* 20 MEQ TAB.ER PO SCH ×2 (08:10→21:20)
[2018-07-09] MEDS: amLODIPine TAB* 5 MG PO SCH (08:10)
[2018-07-09] MEDS: Metoprolol Tartrate TAB* 25 MG PO SCH ×2 (08:10→21:24)
[2018-07-09] MEDS: Aspirin 81 mg CHEW TAB* 81 MG TAB.CHEW PO SCH (08:11)
[2018-07-09] MEDS: cefTRIAXone(*) 1 GM in NS 0.9% 50 ML* 50 ML IVPB SCH (15:41)
--- NOTE | 2018-07-09 15:46 | PN ---
Progress Note - Progress Note Date of Service: 07/09/18 - Pulm f/u note Note: Pt seen and examined at bedside. Pt reports feeling better. Having cough since afternoon. More tired today- didnot sleep well last night due to interruptions and is NPO for U/S that is scheduled. Active Medications Generic Name Dose Route Start Last Admin Trade Name Freq PRN Reason Stop Dose Admin Acetaminophen 650 mg 07/07/18 14:03 Tylenol Tab* PO Q6HR PRN PAIN Al Hydrox/Mg Hydrox/Simethicone 30 ml 07/07/18 19:48 07/07/18 21:11 Maalox Plus* PO 30 ml Q4H PRN Administration INDIGESTION Amlodipine Besylate 10 mg 07/09/18 09:00 07/09/18 08:10 Norvasc Tab* PO 10 mg DAILY MELINA Administration Aspirin 81 mg 07/08/18 09:00 07/09/18 08:11 Aspirin 81 Mg Chew Tab* PO 81 mg DAILY MELINA Administration Dextrose 12.5 gm 07/07/18 14:05 D50w Syringe 50 Ml* IV PUSH .FOR FS < 60 - SS PRN FS < 60 Ceftriaxone Sodium 1 gm/ 50 mls @ 200 mls/hr 07/08/18 15:00 07/09/18 15:41 Sodium Chloride IVPB 200 mls/hr Q24H MELINA Administration Azithromycin 250 mg/ Sodium 250 mls @ 250 mls/hr 07/08/18 09:00 07/09/18 08: 09 Chloride IVPB 07/12/18 08:59 250 mls/hr DAILY MELINA Administration Insulin Glargine 10 units 07/09/18 21:00 Lantus(*) SUBCUT Q24H MELINA Insulin Human Lispro 0 units 07/07/18 16:30 07/09/18 14:30 Humalog* SUBCUT 10 units ACHS MELINA Administration Protocol Lisinopril 40 mg 07/08/18 09:00 07/09/18 08:10 Prinivil Tab* PO 40 mg DAILY MELINA Administration Metoprolol Tartrate 25 mg 07/07/18 21:00 07/09/18 08:10 Lopressor Tab* PO 25 mg BID MELINA Administration Potassium Chloride 20 meq 07/07/18 21:00 07/09/18 08:10 Klor Con Er Tab* PO 20 meq BID MELINA Administration Rivaroxaban 20 mg 07/08/18 17:00 07/09/18 08:10 Xarelto(*) PO 20 mg DAILY MELINA Administration Vital Signs Temp Pulse Resp BP Pulse Ox 97.3 F 65 18 113/90 94 07/09/18 15:18 07/09/18 15:18 07/09/18 15:18 07/09/18 15:18 07/09/18 15:18 O/E: Pt in NAD, lying in bed HEENT: PERRLA, no JVD Lungs: Diminished air entry b/l, scattered wheeze CVS: S1, S2+, regular Abd: Soft, BS+ Ext: Normal ROM Skin: No rash, seborrheic keratosis + Neuro: Alert, awake, no focal deficits Laboratory Results - last 24 hr 07/08/18 07/08/18 07/09/18 17:12 20:38 06:45 WBC 13.1 H RBC 4.31 Hgb 13.2 L Hct 38 MCV 88 MCH 31 MCHC 35 RDW 14 Plt Count 490 H D MPV 7.4 Sodium Potassium Chloride Carbon Dioxide Anion Gap BUN Creatinine Est GFR ( Amer) Est GFR (Non-Af Amer) BUN/Creatinine Ratio Glucose POC Glucose (mg/dL) 228 H 249 H Calcium Magnesium Total Bilirubin Direct Bilirubin Indirect Bilirubin AST ALT Alkaline Phosphatase Total Protein Albumin Globulin Albumin/Globulin Ratio Cortisol 07/09/18 07/09/18 07/09/18 06:45 07:30 11:54 WBC RBC Hgb Hct MCV MCH MCHC RDW Plt Count MPV Sodium 123 L Potassium 3.9 Chloride 88 L Carbon Dioxide 24 Anion Gap 11 BUN 19 Creatinine 0.63 L Est GFR ( Amer) 148.7 Est GFR (Non-Af Amer) 122.9 BUN/Creatinine Ratio 30.2 H Glucose 185 H POC Glucose (mg/dL) 160 H 372 H Calcium 8.5 L Magnesium 1.4 L Total Bilirubin 0.70 Direct Bilirubin 0.10 Indirect Bilirubin 0.6 AST 154 H ALT 224 H Alkaline Phosphatase 120 H Total Protein 6.5 Albumin 2.9 L Globulin 3.6 Albumin/Globulin Ratio 0.8 L Cortisol 25.97 I/R: 77 y o M with DM2, HTN, afib on AC, remote history of melanoma s/p excision , Prostate cancer s/p XRT, sarcoid in remission,with cough, one episode of hemoptysis, and dyspnea being treated for PNA Pt with improvement in cough, slightly worse this afternon- no phelghm, SOB, no further episodes of hemoptysis Leucocytosis improving, clinically suggestive of PNA and responding well Not requiring O2 CT chest with air space opacities and areas of dense consolidation Has remote h/o Sarcoidosis that was never treated Given clinical improvement with c/w management for PNA Hyponatremia- on fluid restriction, improving Elevated LFTs, to have U/S liver OOB to chair as tolerated
[2018-07-09 16:33] LABS: Procalcitonin, S 0.16 ng/mL (<=0.15)
--- NOTE | 2018-07-09 18:58 | CONS ---
CONSULTATION REPORT: DATE OF CONSULT: 07/09/18 REQUESTING PHYSICIAN: Dr. Duyen Magaña. REASON FOR CONSULT: Elevated liver enzymes. HISTORY OF PRESENT ILLNESS: This is a pleasant 77-year-old male with a past medical history of non-i nsulin-dependent diabetes; hypertension; hyperlipidemia; atrial fibrillation, on rivaroxaban; prostat e cancer; melanoma; and distant sarcoidosis, who presented to the emergency room with hemoptysis, dys pnea, and a productive sputum cough. He has had a period of decline over the last couple of weeks an d a fall that occurred about a week ago. In addition, he was treated as an outpatient for an upper r espiratory infection with doxycycline. No other new medicines were administered in the last few abigail hs. He denies any herbal supplements or changes in the doses of his medications. He admits to incre asing shortness of breath, sputum production, and had an episode of hemoptysis which prompted the eden luation for the hospital. He denies any black or blood in a stool. Denies any abdominal discomfort. No reflux. No episodes of jaundice or yellowing to his eyes. No pruritus or nocturnal itching. He denies any history of liver disease in the past. No diarrhea or constipation. No melena or hematoc hezia. The remainder of the 14-point review of systems is grossly negative. PAST MEDICAL HISTORY: Sfb-[id number]-ychlxkwlo diabetes mellitus; hypertension; hyperlipidemia; atrial fibrillation, on rivaroxaban; prostate cancer, status post radiation; melanoma; and distant sarcoidos is. PAST SURGICAL HISTORY: Left total hip replacement, hernia repair, melanoma excision on the left neck . HOME MEDICATIONS: Include: 1. Acetaminophen. 2. Amlodipine. 3. Aspirin. 4. Atorvastatin. 5. Calcium. 6. Recent doxycycline exposure. 7. Glipizide. 8. Lisinopril. 9. Magnesium citrate. 10. Metformin. 11. Metoprolol. 12. Rivaroxaban. 13. Multivitamin. ALLERGIES: Include FLUOROQUINOLONES. FAMILY HISTORY: No family history of GI cancer or inflammatory bowel disease or liver disease. SOCIAL HISTORY: Retired company truck driver. Nonsmoker. Very rare alcohol. REVIEW OF SYSTEMS: The remainder of the 14-point review of systems is grossly negative except as ha cribed in the HPI. PHYSICAL EXAM: Vital Signs: Blood pressure is 113/90, pulse is 65, respiratory rate is 18, he has b een afebrile, he is 94% on room air. In general, alert, no acute distress. HEENT: Atraumatic, norm ocephalic. Pupils equal, round, reactive to light. Extraocular movements are intact. Sclerae anict josie. Conjunctivae are pink. Neck is supple without palpable adenopathy. Cardiac: Irregularly irr egular. Lungs: Diminished at the base with expiratory crackles, fair effort. Abdomen: Soft, nonten jack, nondistended. Bowel sounds positive. No gross hepatosplenomegaly. No vascular prominence of t he abdomen. Neurological: Nonfocal. Skin: A few scattered ecchymoses and seborrheic keratosis. DIAGNOSTIC STUDIES/LAB DATA: AST on 05/28/18 was 24, on arrival to the hospital on 07/07/18 was 181 and has fallen to 154. ALT on 05/28/18 was also 22 and on 07/07/18 was 198 and today is 224. Biliru bin has been normal. Alkaline phosphatase slightly elevated at 120. Albumin 2.9. Percent saturatio n is 17. Platelet count is 490. Hemoglobin 13.2. Hepatitis panel is negative. He had a CT of the a bdomen and pelvis, which revealed hepatic steatosis, diverticulosis. ASSESSMENT AND PLAN: This is a 77-year-old male with transaminitis, who is hospitalized for hemoptys is and pneumonia. 1. Transaminitis. This is relatively new. He does have evidence of steatosis on CT and likely has some component of fatty liver disease; however, the jump from 22 to 200 is more indicative of an acut e process, likely DILI or drug-induced liver injury versus ischemic hepatopathy from his recent pneum onia. He has no gross hypotension. He may have been hypotensive prior to the arrival to the [facility]. In addition, he is on atorvastatin. This is actually a good medication to be on for fatty liver d isease and for his hyperlipidemia. We temporarily suspend this. In addition, he had exposure to doxy cycline as an outpatient, which may have resulted in the transaminitis as well. We will plan on gett ing a right upper quadrant ultrasound to evaluate the biliary tree and liver further. In addition, skinny hawk will plan on getting serological studies including anti-smooth muscle and antimitochondrial antibod y. He has a percent saturation of iron that is not consistent with hemochromatosis. In addition, he has a negative hepatitis profile. I suspect this is more drug-induced liver injury in combination wi th his recent infection. If liver numbers are stable when right upper quadrant ultrasound is nonreve aling, would recommend holding the atorvastatin for a few weeks and then he can see me for followup i n the office. We will recheck his CMP at that point and see how his liver numbers are doing. In add ition, regarding the steatosis in his liver, he should work on weight loss of 10% of his body weight. 2. Insulin-dependent diabetes type 2 per primary team. 3. Hepatic steatosis, as above. 4. Pneumonia, treatment per primary team and Pulmonary. [id number]/[facility] #: [id number]
--- NOTE | 2018-07-09 20:08 | PN ---
Subjective Interval History: Pt reports he feels fine and back to baseline and would like to go. Discussed waiting for sodium to improve a bit more. Still denies abdominal symptoms. Discussed isolated elevated transaminases with GI today - they will see patient. Recommended RUQ US and stopping statin, likely with outpatient f/u for more extensive work up. Objective Active Medications: Acetaminophen (Tylenol Tab*) 650 mg PO Q6HR PRN PRN Reason: PAIN Al Hydrox/Mg Hydrox/Simethicone (Maalox Plus*) 30 ml PO Q4H PRN PRN Reason: INDIGESTION Last Admin: 07/07/18 21:11 Dose: 30 ml Amlodipine Besylate (Norvasc Tab*) 10 mg PO DAILY [facility] Last Admin: 07/09/18 08:10 Dose: 10 mg Aspirin (Aspirin 81 Mg Chew Tab*) 81 mg PO DAILY [facility] Last Admin: 07/09/18 08:11 Dose: 81 mg Dextrose (D50w Syringe 50 Ml*) 12.5 gm IV PUSH .FOR FS < 60 - SS PRN PRN Reason: FS < 60 Ceftriaxone Sodium 1 gm/ (Sodium Chloride) 50 mls @ 200 mls/hr IVPB Q24H [facility] Last Admin: 07/09/18 15:41 Dose: 200 mls/hr Azithromycin 250 mg/ Sodium (Chloride) 250 mls @ 250 mls/hr IVPB DAILY [facility] Stop: 07/12/18 08:59 Last Admin: 07/09/18 08:09 Dose: 250 mls/hr Insulin Glargine (Lantus(*)) 10 units SUBCUT Q24H [facility] Insulin Human Lispro (Humalog*) 0 units SUBCUT ACHS [facility]; Protocol Last Admin: 07/09/18 18:09 Dose: Not Given Lisinopril (Prinivil Tab*) 40 mg PO DAILY [facility] Last Admin: 07/09/18 08:10 Dose: 40 mg Metoprolol Tartrate (Lopressor Tab*) 25 mg PO BID [facility] Last Admin: 07/09/18 08:10 Dose: 25 mg Potassium Chloride (Klor Con Er Tab*) 20 meq PO BID [facility] Last Admin: 07/09/18 08:10 Dose: 20 meq Rivaroxaban (Xarelto(*)) 20 mg PO DAILY [facility] Last Admin: 07/09/18 08:10 Dose: 20 mg Vital Signs - 8 hr 07/09/18 07/09/18 07/09/18 15:14 15:18 19:30 Temperature 97.3 F 97.3 F Pulse Rate 65 65 Respiratory 18 18 16 Rate Blood Pressure 113/90 113/90 (mmHg) O2 Sat by Pulse 94 94 Oximetry Oxygen Devices in Use Now: None Appearance: well appearing sitting in chair next to Respiratory: - - mild crackles at R base, otherwise clear Cardiovascular: - - irregularly irregular Abdominal: NL Sounds; No Tenderness; No Distention, No Hepatosplenomegaly Extremities: No Edema Result Diagrams: 07/09/18 06:45 07/09/18 06:45 Microbiology and Other Data: Microbiology 07/07/18 13:33 Aerobic Blood Culture - Preliminary Blood Venous No Growth Day 1 Anaerobic Blood Culture - Preliminary No Growth Day 1 07/07/18 09:37 Group A Streptococcus Rapid Screen - Final Throat Specimen received for Rapid Strep A Molecular testing 07/07/18 09:37 Influenza Types A,B Antigen - Final Nasopharyngeal Specimen received for Influenza A/B Molecular testing Assess/Plan/Problems-Billing 77M with DM2, HTN, afib on AC, remote history of melanoma s/p excision, sarcoid in remission, prostate cancer, presents with cough, one episode of hemoptysis, and dyspnea, found with PNA on CT, hyponatremia, and new transaminitis. - Patient Problems (1) Pneumonia Comment: Presenting with SOB/cough, found with PNA by CT. 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 Did not change with IVF - could have initially had hypovolemia component as well (Renetta is low). TSH normal. - started fluid restriction 07/08, now up 3 mmol/L - monitor BMP - treat underlying infx as above (3) Transaminitis Comment: Unclear etiology of isolated elevated transaminases, although patient does have HASTINGS, so this is most likely given otherwise negative work up (neg hemochromatosis screen, negative hep screen). Could have hypoperfusion in setting of infection, although pt with good BP on presentation and not improving s/p IVF. No new supplements or medications. No alcohol use. Pt adamantly denies GI symptoms and exam is benign. INR is elevated, as well, but this is most likely from rivaroxaban. RUQ normal. - trend LFTs, abdominal exam - appreciate Dr. Adia nath (4) Sarcoid Comment: Quiescent. - pulm following (5) Diabetes Comment: Glucose control not great. - cont fingersticks and sliding scale - increase glargine to 10u today - likely should not be on glipizide as outpatient - consider alternatives on DC - stopping statin in light of liver injury - low carb (6) Hypertension Comment: - cont home metoprolol, amlodipine, and lisinopril (7) Atrial fibrillation Current Visit: Yes Comment: - cont rate control with bb - restart rivaroxaban given stable Hgb and no further episodes of hemoptysis (8) DVT prophylaxis Comment: on therapeutic AC Status and Disposition: Inpatient until sodium improves.
[2018-07-09] MEDS ORDERED: Insulin GLARGINE(*) 1 UNITS UNIT SUBCUT SCH (21:00)
[2018-07-10 06:18] LABS: ABS Basophils 0 10^3/ul (0-0.2); ABS Eosinophils 0.1 10^3/ul (0-0.6); ABS Lymphocytes 0.9 10^3/ul (1.0-4.8); ABS Monocytes 0.8 10^3/ul (0-0.8); ABS Neutrophils 8.8 10^3/ul (1.5-7.7); ABS Nucleated RBC 0 10^3/ul; Eosinophil % 0.7 %; Hematocrit 35 % (36-46); Hemoglobin 11.8 g/dL (14.0-18.0); Lymphocyte % 8.6 %; Mean Corpuscular HGB Conc 34 g/dL (31-36); Mean Corpuscular Hemoglobin 30 pg (27-31); Mean Corpuscular Volume 88 fL (80-94); Mean Platelet Volume 6.8 fL (7.4-10.4); Nucleated Red Blood Cells % 0; Platelet Count 465 10^3/uL (150-450); Red Blood Count 3.93 10^6 /uL (4.18-5.48); Red Cell Distribution Width 14 % (10.5-15); White Blood Count 10.7 10^3/uL (3.5-10.8)
[2018-07-10 06:37] LABS: Albumin 2.6 g/dL (3.2-5.2); Albumin/Globulin Ratio 0.8 (1-3); BUN/Creatinine Ratio 26.6 (8-20); Calcium 8.3 mg/dL (8.6-10.3); EGFR Non-African American 120.6 (>60); Globulin 3.3 g/dL (2-4); Indirect Bilirubin 0.5 mg/dL (0.3-1.0); Potassium 3.9 mmol/L (3.5-5.0); Total Bilirubin 0.6 mg/dL (0.2-1.0); Total Protein 5.9 g/dL (6.4-8.9)
[2018-07-10] MEDS: Lisinopril TAB* 10 MG PO SCH (07:11)
[2018-07-10] MEDS: amLODIPine TAB* 5 MG PO SCH (07:11)
[2018-07-10] MEDS: Metoprolol Tartrate TAB* 25 MG PO SCH (07:12)
[2018-07-10] MEDS: Potassium Chlor TAB* 20 MEQ TAB.ER PO SCH (07:12)
[2018-07-10] MEDS: Rivaroxaban TAB(*) 20 MG TAB PO SCH (07:12)
[2018-07-10] MEDS: Aspirin 81 mg CHEW TAB* 81 MG TAB.CHEW PO SCH (07:12)
[2018-07-10 07:22] VITALS: BP 137/70
[2018-07-10] MEDS ORDERED: Cefdinir cap* 300 MG CAP PO SCH (08:00)
[2018-07-10] MEDS ORDERED: Azithromycin TAB* 250 MG PO SCH (09:00)
[2018-07-10] MEDS: Insulin LISPRO* 1 UNITS UNIT SUBCUT SCH (09:16)
--- NOTE | 2018-07-10 14:33 | DS ---
CC: Dr. Hira Duran; Dr. Sergei Cheek; Dr. Perez * DISCHARGE SUMMARY: DATE OF ADMISSION: 07/07/18 DATE OF DISCHARGE: 07/10/18 PRIMARY CARE PHYSICIAN: Dr. Hira Duran. CONSULTS: Gastroenterology, Dr. Sergei Cheek and Pulmonology, Dr. Perez. DISPOSITION: To home. CONDITION: Improved. HISTORY OF PRESENT ILLNESS: A 77-year-old man with a history of diabetes; hypertension; hyperlipidemia; atrial fibrillation, on anticoagulation; remote prostate cancer; remote melanoma, status post excision only; and sarcoidosis, presumed in remission; who presented with subacute and progressive cough and chest pain for 4 days. Approximately 1 week prior to presentation, the patient had a mechanical fall while carrying coal into his home and had subsequently dislocated his right shoulder. Since then, he felt like he has been having a bit of a decline in functioning and strength with poor appetite. A few days after the fall, he began experiencing a cough that was progressive until 1 day prior to presentation where he had 1 episode of hemoptysis. His sputum was significant for scant blood, so he decided to present to the emergency room. HOSPITAL COURSE: The patient had stable vital signs, was noted to have new hyponatremia, sodium 119, and newly elevated isolated transaminitis with AST, ALT in the upper 100s. His flu and rapid strep were both negative. He had a CTPE performed given D-dimer greater than 1000, which resulted with a bilateral broncholobar pneumonia and sarcoid stage 2. A chest x-ray showed patchy infiltrate to bilateral lower lobes. He was admitted for IV antibiotics, hyponatremia workup and treatment, hepatitis treatment. After admission, he was fluid restricted. His sodium increased appropriately and by the day of discharge was 124. He never exhibited symptoms of hyponatremia. For his elevated LFTs, a right upper quadrant ultrasound was unrevealing for etiology and a CT scan also did not show any evidence of disease besides HASTINGS. He was evaluated by GI and thought safe to be discharged given the patient had remained symptomatic without nausea, vomiting, right upper quadrant pain and his statin was stopped. He was switched to oral antibiotics 1 day prior to discharge. On day of discharge, he reports baseline weakness and pain in the right arm after fall, resolution of his cough and shortness of breath. Otherwise, 10-point review of systems was negative. PHYSICAL EXAMINATION: Afebrile, heart rate 60s, blood pressure 137/70, respiratory rate 12, saturating 98% on room air. General: A well-appearing elderly gentleman in no acute distress, nontoxic, sitting in chair, speaking in full sentences without accessory muscle use. Heart: Irregularly irregular. No murmurs, gallops or rubs. Lungs: Clear to auscultation bilaterally. Abdomen: Soft, nontender, nondistended. Givens sign negative. Lower extremities without evidence of edema. DISCHARGE PLAN: He is to follow up with his primary care physician next week for hyponatremia management. He is to continue a fluid restricted diet. A basic metabolic panel was ordered for him to have drawn in 2 days. For his history of sarcoidosis, he should follow up with his medical records director. He should have a repeat CT scan in 6 weeks, which would be early August, to ensure resolution of the consolidation seen previously on chest CT in the emergency room. For his isolated asymptomatic elevated transaminases, he is to follow up with Dr. Cheek 2 to 4 weeks after discharge for continued workup for etiology of the lab abnormalities. His statin in the meantime is being held while his liver enzymes are still elevated. He is also to complete a course of oral antibiotics for pneumonia. His blood sugar during admission proved difficult to control and he required increasing dosage of insulin. He was educated to have a low carbohydrate and low sugar diet on discharge. MEDICATIONS ON DISCHARGE: 1. Azithromycin 250 mg daily for 2 more days. 2. Cefdinir 300 mg p.o. daily for 4 more days. 3. Aspirin 81 mg daily. 4. Amlodipine 5 mg daily. 5. Lisinopril 40 mg daily. 6. Metformin 850 mg twice a day. 7. Sitagliptin 100 mg daily. 10. Metoprolol tartrate 25 mg twice a day. 11. Rivaroxaban 20 mg daily. Of note, the patient's glipizide was discontinued as likely not the safest sulfonylurea to use in this elderly gentleman with recent history of fall. TIME SPENT: Sixty minutes spent on discharge of this patient, over half of which was spent at the bedside for interview, exam, and education. [id number]/[facility] #: [id number] MTDD
[2018-07-12 15:45] LABS: Smooth Muscle Antibody Negative (Negative)
[2018-07-12 19:48] LABS: Mitochondria M2 Antibody <0.1 U
== END 2018-07-10 10:00 | disposition home or self-care (01) | DRG 643 ==
LOC: ED 08:33 → MED 13:55
PROVIDERS: ADMIT Internal Medicine; ATTEND Advanced Practice Midwife
DX: E22.2 Syndrome of inappropriate secretion of antidiuretic hormone (principal); J18.0 Bronchopneumonia, unspecified organism; I10 Essential (primary) hypertension; E78.5 Hyperlipidemia, unspecified; Z96.642 Presence of left artificial hip joint; D86.0 Sarcoidosis of lung; E11.65 Type 2 diabetes mellitus with hyperglycemia; R59.0 Localized enlarged lymph nodes; D64.9 Anemia, unspecified; L82.1 Other seborrheic keratosis; I48.91 Unspecified atrial fibrillation; K75.81 Nonalcoholic steatohepatitis (NASH); Z85.820 Personal history of malignant melanoma of skin; Z92.3 Personal history of irradiation; Z82.3 Family history of stroke; Z82.49 Family history of ischemic heart disease and other diseases of the circulatory system; Z85.46 Personal history of malignant neoplasm of prostate; Z87.891 Personal history of nicotine dependence; Z88.1 Allergy status to other antibiotic agents; Z79.84 Long term (current) use of oral hypoglycemic drugs; Z79.82 Long term (current) use of aspirin; Z79.01 Long term (current) use of anticoagulants
CPT/HCPCS: 36415; 71046; 71275; 74177; 76705; 80048; 80053; 80074; 80076; 81003; 81015; 82306; 82436; 82533; 82570; 82652; 83036; 83516; 83540; 83550; 83735; 83935; 84133; 84145; 84300; 84443; 84484; 85025; 85027; 85379; 85610; 85730; 86140; 86255; 87040; 87651; 93005; 99283; A9270-GY; G8978-GP-CI; G8979-GP-CH; G8987-GO-CJ; G8988-GO-CI; J0456; J0696; Q9967

== ENCOUNTER 2022-03-19 09:19 | Inpatient (IN) ==
[2022-03-19] MEDS ORDERED: cefTRIAXone 1 gm/50 mL D5W 1 GM/50 ML BAG IV ONE (11:40)
[2022-03-19 12:06] LABS: ABS Lymphocytes 0.8 10^3/ul (1.0-4.8); ABS Monocytes 0.6 10^3/ul (0-0.8); ABS Neutrophils 4.9 10^3/ul (1.5-7.7); Hematocrit 39 % (42-52); Hemoglobin 13.2 g/dL (14.0-18.0); Lymphocyte % 12.2 %; Mean Corpuscular HGB Conc 34 g/dL (31-36); Mean Corpuscular Hemoglobin 30 pg (27-31); Mean Corpuscular Volume 89 fL (80-94); Mean Platelet Volume 7.8 fL (7.4-10.4); Platelet Count 210 10^3/uL (150-450); Red Blood Count 4.38 10^6 /uL (4.18-5.48); Red Cell Distribution Width 14 % (10-15); White Blood Count 6.3 10^3/uL (3.5-10.8)
[2022-03-19 12:13] LABS: PCO2 Arterial 30 mmHg (35-45); PO2 Arterial 121 mmHg (80-100)
[2022-03-19 12:19] LABS: INR 2.56 (0.89-1.11)
[2022-03-19 12:27] LABS: High Sens Troponin Baseline 21 pg/mL (<20)
[2022-03-19] MEDS ORDERED: Furosemide 40 mg/4 ml IV VIAL IV SLOW PU ONE (12:49)
[2022-03-19 13:08] LABS: ALT 33 U/L (7-52); Albumin 3.9 g/dL (3.2-5.2); Albumin/Globulin Ratio 1.3 (1-3); Alkaline Phosphatase 61 U/L (35-149); Blood Urea Nitrogen 29 mg/dL (6-24); C Reactive Protein 142.88 mg/L (<8.01); CO2 Carbon Dioxide 22 mmol/L (22-32); Calcium 8.7 mg/dL (8.6-10.3); Chloride 95 mmol/L (101-111); Glucose 234 mg/dL (70-100); Magnesium 1.2 mg/dL (1.9-2.7); Sodium 131 mmol/L (135-145); Total Protein 6.9 g/dL (6.4-8.9)
[2022-03-19 13:40] LABS: High Sensitivity Troponin 1 Hr 21 pg/mL (<20)
[2022-03-19 13:52] LABS: Anion Gap 14 mmol/L (2-11)
[2022-03-19] MEDS ORDERED: Magnesium Sulf 4 GM/100 ML IV 4,000 MG/100 ML BAG IVPB ONE (14:30)
[2022-03-19] MEDS ORDERED: Remdesivir 100 mg Vial 200 MG in NS 0.9% 250 ml 210 ML IV ONE (15:17)
[2022-03-19] MEDS ORDERED: Dextrose 50% Syringe 50 ml 25 GM/50 ML SYRINGE IV PUSH PRN ×2 (15:21→20:38)
[2022-03-19 17:07] LABS: Urine Appearance Cloudy; Urine Bilirubin Negative (Negative); Urine Blood 1+ (Negative); Urine Color Yellow; Urine Glucose 1+(50 mg/dL) (Negative); Urine Ketones Negative (Negative); Urine Nitrite Negative (Negative); Urine Protein 3+(>=500 mg/dL) (Negative); Urine Specific Gravity 1.014 (1.002-1.030); Urine Urobilinogen Negative (Negative)
[2022-03-19 17:10] LABS: Phosphorus 3.1 mg/dL (2.5-5.0); Potassium Redraw 3.9 mmol/L (3.5-5.0)
[2022-03-19 17:12] LABS: Urine Bacteria Absent (Absent); Urine Red Blood Cell Trace(0-2/hpf) (Absent); Urine White Blood Cell Absent (Absent)
[2022-03-19] MEDS: methylPREDNISolone SOD SUCC 40 mg/ml 1 ml VIAL IV SCH ×2 (17:31→23:11)
[2022-03-19] MEDS: Pantoprazole VIAL 40 MG VIAL IV SCH (20:00)
[2022-03-19] MEDS: Potassium Chloride LIQUID 20 MEQ/15 ML LIQUID PO ONE ×2 (20:00→20:18)
[2022-03-19 20:19] LABS: Calcium 8.2 mg/dL (8.6-10.3); Magnesium 2.2 mg/dL (1.9-2.7); Potassium 3.5 mmol/L (3.5-5.0); eGFR CKD-EPI 71.2 (>60)
[2022-03-19 20:32] LABS: PCO2 Arterial 37 mmHg (35-45); PO2 Arterial 86 mmHg (80-100)
[2022-03-19] MEDS: KCL 20 MEQ/100 ML IVPREMIX 20 MEQ/100 ML BAG IV SCH (22:05)
[2022-03-19] MEDS: Metoprolol Tartrate 5 mg VIAL 5 ml VIAL (1 mg/ml) IV PRN (23:13)
[2022-03-20] MEDS: KCL 20 MEQ/100 ML IVPREMIX 20 MEQ/100 ML BAG IV SCH (00:13)
[2022-03-20] MEDS: Metoprolol Tartrate 5 mg VIAL 5 ml VIAL (1 mg/ml) IV PRN (05:40)
[2022-03-20 06:00] LABS: ABS Lymphocytes 0.8 10^3/ul (1.0-4.8); ABS Monocytes 0.1 10^3/ul (0-0.8); ABS Neutrophils 4.3 10^3/ul (1.5-7.7); Hematocrit 36 % (42-52); Hemoglobin 12.3 g/dL (14.0-18.0); Mean Corpuscular HGB Conc 34 g/dL (31-36); Mean Corpuscular Hemoglobin 30 pg (27-31); Mean Corpuscular Volume 89 fL (80-94); Mean Platelet Volume 7.6 fL (7.4-10.4); Nucleated Red Blood Cells % 0.1; Platelet Count 183 10^3/uL (150-450); Red Cell Distribution Width 13 % (10-15); White Blood Count 5.2 10^3/uL (3.5-10.8)
[2022-03-20 06:10] LABS: INR 1.48 (0.89-1.11)
[2022-03-20 06:26] LABS: Calcium 8.2 mg/dL (8.6-10.3); Magnesium 1.9 mg/dL (1.9-2.7); Phosphorus 2.9 mg/dL (2.5-5.0); Potassium 4.1 mmol/L (3.5-5.0); eGFR CKD-EPI 60.6 (>60)
[2022-03-20] MEDS ORDERED: Magnesium Sulfate IV 1GM/100ML 1 GM/100 ML BAG IV ONE (09:08)
[2022-03-20] MEDS: methylPREDNISolone SOD SUCC 40 mg/ml 1 ml VIAL IV SCH ×3 (09:51→22:56)
[2022-03-20] MEDS: Pantoprazole VIAL 40 MG VIAL IV SCH (21:06)
[2022-03-20] MEDS: Remdesivir 100 mg Q24H MAINTENANCE DOSING IV SCH (21:26)
[2022-03-21 05:31] LABS: ABS Lymphocytes 0.9 10^3/ul (1.0-4.8); ABS Monocytes 0.3 10^3/ul (0-0.8); ABS Neutrophils 5.3 10^3/ul (1.5-7.7); Hematocrit 37 % (42-52); Hemoglobin 12.7 g/dL (14.0-18.0); Lymphocyte % 14.2 %; Mean Corpuscular HGB Conc 34 g/dL (31-36); Mean Corpuscular Hemoglobin 30 pg (27-31); Mean Corpuscular Volume 88 fL (80-94); Mean Platelet Volume 8.3 fL (7.4-10.4); Platelet Count 232 10^3/uL (150-450); Red Blood Count 4.24 10^6 /uL (4.18-5.48); Red Cell Distribution Width 14 % (10-15); White Blood Count 6.5 10^3/uL (3.5-10.8)
[2022-03-21 06:04] LABS: Blood Urea Nitrogen 60 mg/dL (6-24); CO2 Carbon Dioxide 22 mmol/L (22-32); Calcium 8.3 mg/dL (8.6-10.3); Chloride 97 mmol/L (101-111); Glucose 285 mg/dL (70-100); Sodium 131 mmol/L (135-145); eGFR CKD-EPI 50.7 (>60)
[2022-03-21 06:11] LABS: Anion Gap 12 mmol/L (2-11)
[2022-03-21] MEDS: methylPREDNISolone SOD SUCC 40 mg/ml 1 ml VIAL IV SCH (08:45)
[2022-03-21 09:53] LABS: Magnesium 2.2 mg/dL (1.9-2.7); Phosphorus 4.3 mg/dL (2.5-5.0); Potassium Redraw 3.6 mmol/L (3.5-5.0)
[2022-03-21] MEDS: Insulin GLARGINE 100 un/ml 10 ml VIAL SUBCUT SCH (20:34)
[2022-03-21] MEDS: Pantoprazole VIAL 40 MG VIAL IV SCH (20:37)
[2022-03-21] MEDS: Remdesivir 100 mg Q24H MAINTENANCE DOSING IV SCH (21:29)
[2022-03-22 05:10] LABS: ABS Lymphocytes 1.3 10^3/ul (1.0-4.8); ABS Monocytes 0.6 10^3/ul (0-0.8); ABS Neutrophils 8.4 10^3/ul (1.5-7.7); Hematocrit 42 % (42-52); Lymphocyte % 12.2 %; Mean Corpuscular HGB Conc 34 g/dL (31-36); Mean Corpuscular Hemoglobin 30 pg (27-31); Mean Corpuscular Volume 88 fL (80-94); Mean Platelet Volume 7.8 fL (7.4-10.4); Platelet Count 266 10^3/uL (150-450); Red Blood Count 4.72 10^6 /uL (4.18-5.48); Red Cell Distribution Width 14 % (10-15); White Blood Count 10.3 10^3/uL (3.5-10.8)
[2022-03-22 05:44] LABS: Calcium 8.8 mg/dL (8.6-10.3); Magnesium 2.2 mg/dL (1.9-2.7); Phosphorus 3.9 mg/dL (2.5-5.0); Potassium 3.7 mmol/L (3.5-5.0); eGFR CKD-EPI 54.5 (>60)
[2022-03-22 18:21] LABS: Glucose Confirmatory 457 mg/dL (70-100)
[2022-03-22] MEDS: Pantoprazole VIAL 40 MG VIAL IV SCH (22:42)
[2022-03-22] MEDS: Remdesivir 100 mg Q24H MAINTENANCE DOSING IV SCH (22:42)
[2022-03-22] MEDS: Insulin GLARGINE 100 un/ml 10 ml VIAL SUBCUT SCH (22:45)
[2022-03-23] MEDS ORDERED: NS 0.9% 1000 ml BAG 1,000 ML IV SCH (18:45)
[2022-03-23] MEDS: Pantoprazole VIAL 40 MG VIAL IV SCH (20:58)
[2022-03-23] MEDS: Remdesivir 100 mg Q24H MAINTENANCE DOSING IV SCH (20:58)
[2022-03-24 06:22] LABS: ABS Lymphocytes 1.5 10^3/ul (1.0-4.8); ABS Monocytes 0.9 10^3/ul (0-0.8); ABS Neutrophils 5.5 10^3/ul (1.5-7.7); Eosinophil % 0.1 %; Hematocrit 38 % (42-52); Hemoglobin 12.7 g/dL (14.0-18.0); Lymphocyte % 18.8 %; Mean Corpuscular HGB Conc 34 g/dL (31-36); Mean Corpuscular Hemoglobin 30 pg (27-31); Mean Corpuscular Volume 88 fL (80-94); Mean Platelet Volume 7.6 fL (7.4-10.4); Platelet Count 245 10^3/uL (150-450); Red Blood Count 4.29 10^6 /uL (4.18-5.48); Red Cell Distribution Width 14 % (10-15); White Blood Count 7.8 10^3/uL (3.5-10.8)
[2022-03-24 06:47] LABS: Calcium 8.1 mg/dL (8.6-10.3); Potassium 3.6 mmol/L (3.5-5.0)
[2022-03-24] MEDS ORDERED: Haloperidol 5 mg/ml SDV IV/IM 5 MG/ML AMP IV SLOW PU ONE (18:15)
[2022-03-24] MEDS ORDERED: Lidocaine 4% GEL 10 GM TUBE TOPICAL ONE (18:35)
[2022-03-24] MEDS: NS 0.9% 1000 ml BAG 1,000 ML IV SCH (19:30)
[2022-03-24 19:59] LABS: Urine Appearance Clear; Urine Bilirubin Negative (Negative); Urine Blood 1+ (Negative); Urine Color Yellow; Urine Glucose 3+(>=500 mg/dL) (Negative); Urine Ketones Negative (Negative); Urine Nitrite Negative (Negative); Urine Protein Negative (Negative); Urine Specific Gravity 1.011 (1.002-1.030); Urine Urobilinogen Negative (Negative)
[2022-03-24 20:57] LABS: Urine Bacteria Absent (Absent); Urine Red Blood Cell 1+(3-5/hpf) (Absent); Urine White Blood Cell Trace(0-5/hpf) (Absent)
[2022-03-24 21:01] LABS: Calcium 8.2 mg/dL (8.6-10.3); Potassium 3.8 mmol/L (3.5-5.0); eGFR CKD-EPI 54.5 (>60)
[2022-03-24] MEDS: Pantoprazole VIAL 40 MG VIAL IV SCH (22:04)
[2022-03-25 06:49] LABS: Hematocrit 38 % (42-52); Hemoglobin 12.9 g/dL (14.0-18.0); Mean Corpuscular HGB Conc 34 g/dL (31-36); Mean Corpuscular Hemoglobin 30 pg (27-31); Mean Corpuscular Volume 87 fL (80-94); Mean Platelet Volume 7.7 fL (7.4-10.4); Platelet Count 318 10^3/uL (150-450); Red Blood Count 4.36 10^6 /uL (4.18-5.48); Red Cell Distribution Width 14 % (10-15)
[2022-03-25 07:28] LABS: Calcium 8.4 mg/dL (8.6-10.3); Potassium 3.4 mmol/L (3.5-5.0); eGFR CKD-EPI 68.9 (>60)
[2022-03-25] MEDS ORDERED: KCL 20 MEQ/100 ML IVPREMIX 20 MEQ/100 ML BAG IV ONE (08:38)
[2022-03-25 09:33] LABS: ABS Eosinophils 0.1 10^3/ul (0-0.6); ABS Lymphocytes 2.1 10^3/ul (1.0-4.8); ABS Monocytes 1.3 10^3/ul (0-0.8); ABS Neutrophils 7.5 10^3/ul (1.5-7.7); Eosinophil % 0.8 %; Lymphocyte % 19.3 %
[2022-03-25] MEDS: NS 0.9% 1000 ml BAG 1,000 ML IV SCH ×2 (10:48→22:52)
[2022-03-25] MEDS ORDERED: NS 0.9% 500 ml BAG 500 ML IV ONE (16:16)
[2022-03-25] MEDS: Pantoprazole VIAL 40 MG VIAL IV SCH (21:02)
[2022-03-26 06:29] LABS: Hematocrit 34 % (42-52); Hemoglobin 12.1 g/dL (14.0-18.0); Mean Corpuscular HGB Conc 35 g/dL (31-36); Mean Corpuscular Hemoglobin 31 pg (27-31); Mean Corpuscular Volume 87 fL (80-94); Mean Platelet Volume 7.7 fL (7.4-10.4); Platelet Count 296 10^3/uL (150-450); Red Blood Count 3.94 10^6 /uL (4.18-5.48); Red Cell Distribution Width 14 % (10-15); White Blood Count 10.3 10^3/uL (3.5-10.8)
[2022-03-26 06:52] LABS: Potassium 3.6 mmol/L (3.5-5.0); eGFR CKD-EPI 65.9 (>60)
[2022-03-26] MEDS: Metoprolol Tartrate 5 mg VIAL 5 ml VIAL (1 mg/ml) IV PRN (08:10)
[2022-03-26] MEDS: NS 0.9% 1000 ml BAG 1,000 ML IV SCH ×2 (12:39→23:17)
[2022-03-26] MEDS: Pantoprazole VIAL 40 MG VIAL IV SCH (20:43)
[2022-03-27 06:13] LABS: ABS Eosinophils 0.2 10^3/ul (0-0.6); ABS Lymphocytes 1.5 10^3/ul (1.0-4.8); ABS Monocytes 1.1 10^3/ul (0-0.8); Eosinophil % 1.9 %; Hematocrit 34 % (42-52); Hemoglobin 11.7 g/dL (14.0-18.0); Lymphocyte % 11.6 %; Mean Corpuscular HGB Conc 34 g/dL (31-36); Mean Corpuscular Hemoglobin 30 pg (27-31); Mean Corpuscular Volume 87 fL (80-94); Mean Platelet Volume 7.5 fL (7.4-10.4); Platelet Count 355 10^3/uL (150-450); Red Blood Count 3.89 10^6 /uL (4.18-5.48); Red Cell Distribution Width 14 % (10-15); White Blood Count 12.8 10^3/uL (3.5-10.8)
[2022-03-27 06:35] LABS: Potassium 3.5 mmol/L (3.5-5.0); eGFR CKD-EPI 68.9 (>60)
[2022-03-27] MEDS ORDERED: Potassium Chlor 20 meq TAB.ER PO ONE (08:35)
[2022-03-27 08:55] LABS: Magnesium 1.1 mg/dL (1.9-2.7)
[2022-03-27] MEDS ORDERED: Magnesium Sulf 4 GM/100 ML IV 4,000 MG/100 ML BAG IVPB ONE (09:33)
[2022-03-27] MEDS: Pantoprazole VIAL 40 MG VIAL IV SCH (20:10)
[2022-03-28 08:20] LABS: ABS Eosinophils 0.2 10^3/ul (0-0.6); ABS Lymphocytes 1.3 10^3/ul (1.0-4.8); ABS Monocytes 0.9 10^3/ul (0-0.8); ABS Neutrophils 9.3 10^3/ul (1.5-7.7); Eosinophil % 1.5 %; Hematocrit 36 % (42-52); Lymphocyte % 10.8 %; Mean Corpuscular HGB Conc 34 g/dL (31-36); Mean Corpuscular Hemoglobin 30 pg (27-31); Mean Corpuscular Volume 87 fL (80-94); Mean Platelet Volume 7.6 fL (7.4-10.4); Platelet Count 418 10^3/uL (150-450); Red Blood Count 4.07 10^6 /uL (4.18-5.48); Red Cell Distribution Width 14 % (10-15); White Blood Count 11.6 10^3/uL (3.5-10.8)
[2022-03-28 08:54] LABS: Calcium 8.3 mg/dL (8.6-10.3); Magnesium 1.6 mg/dL (1.9-2.7); Potassium 3.9 mmol/L (3.5-5.0); eGFR CKD-EPI 67.3 (>60)
[2022-03-28] MEDS: CMC:SitaGLIPtin 100 mg TAB (NF) PO SCH (08:58)
[2022-03-28] MEDS ORDERED: Potassium Chlor 20 meq TAB.ER PO ONE ×2 (09:30→18:23)
[2022-03-28] MEDS ORDERED: Magnesium Sulfate IV 3 GM in NS 0.9% 100 ml BAG 100 ML IVPB ONE (10:00)
[2022-03-28] MEDS ORDERED: Perflutren Lipid Microsphere 3 ML VIAL ONE (14:20)
[2022-03-28 16:51] LABS: Magnesium 2.1 mg/dL (1.9-2.7); Potassium 3.7 mmol/L (3.5-5.0)
[2022-03-28] MEDS: Pantoprazole VIAL 40 MG VIAL IV SCH (21:13)
[2022-03-29 06:11] LABS: ABS Eosinophils 0.1 10^3/ul (0-0.6); ABS Lymphocytes 0.9 10^3/ul (1.0-4.8); ABS Neutrophils 7.7 10^3/ul (1.5-7.7); Eosinophil % 1.3 %; Hematocrit 33 % (42-52); Hemoglobin 11.2 g/dL (14.0-18.0); Lymphocyte % 8.9 %; Mean Corpuscular HGB Conc 34 g/dL (31-36); Mean Corpuscular Hemoglobin 30 pg (27-31); Mean Corpuscular Volume 87 fL (80-94); Mean Platelet Volume 7.4 fL (7.4-10.4); Platelet Count 417 10^3/uL (150-450); Red Blood Count 3.75 10^6 /uL (4.18-5.48); Red Cell Distribution Width 13 % (10-15); White Blood Count 9.7 10^3/uL (3.5-10.8)
[2022-03-29 06:53] LABS: Calcium 8.5 mg/dL (8.6-10.3); Magnesium 1.7 mg/dL (1.9-2.7); Potassium 4.6 mmol/L (3.5-5.0); eGFR CKD-EPI 72.1 (>60)
[2022-03-29] MEDS ORDERED: Magnesium Sulfate 2 gm BAG 2 GM/50 ML BAG IVPB ONE (07:18)
[2022-03-29] MEDS: CMC:SitaGLIPtin 100 mg TAB (NF) PO SCH (08:18)
[2022-03-29 15:28] LABS: Calcium 8.6 mg/dL (8.6-10.3); Potassium 4.6 mmol/L (3.5-5.0); eGFR CKD-EPI 60.6 (>60)
[2022-03-29] MEDS: Pantoprazole VIAL 40 MG VIAL IV SCH (20:20)
[2022-03-30 08:34] LABS: Calcium 8.6 mg/dL (8.6-10.3); Magnesium 1.6 mg/dL (1.9-2.7); Potassium 4.3 mmol/L (3.5-5.0); eGFR CKD-EPI 74.7 (>60)
[2022-03-30] MEDS: CMC:SitaGLIPtin 100 mg TAB (NF) PO SCH (09:38)
[2022-03-30] MEDS ORDERED: Magnesium Sulfate 2 gm BAG 2 GM/50 ML BAG IVPB ONE (12:07)
[2022-03-30] MEDS: Pantoprazole VIAL 40 MG VIAL IV SCH (20:04)
[2022-03-31 08:41] LABS: ABS Eosinophils 0.1 10^3/ul (0-0.6); ABS Lymphocytes 0.8 10^3/ul (1.0-4.8); ABS Monocytes 1.4 10^3/ul (0-0.8); ABS Neutrophils 10.1 10^3/ul (1.5-7.7); Eosinophil % 0.5 %; Hematocrit 33 % (42-52); Hemoglobin 11.2 g/dL (14.0-18.0); Lymphocyte % 6.7 %; Mean Corpuscular HGB Conc 34 g/dL (31-36); Mean Corpuscular Hemoglobin 30 pg (27-31); Mean Corpuscular Volume 88 fL (80-94); Mean Platelet Volume 7.4 fL (7.4-10.4); Platelet Count 426 10^3/uL (150-450); Red Blood Count 3.77 10^6 /uL (4.18-5.48); Red Cell Distribution Width 14 % (10-15); White Blood Count 12.4 10^3/uL (3.5-10.8)
[2022-03-31 09:39] LABS: Calcium 8.6 mg/dL (8.6-10.3); Magnesium 1.6 mg/dL (1.9-2.7); Potassium 4.5 mmol/L (3.5-5.0); eGFR CKD-EPI 70.4 (>60)
[2022-03-31] MEDS ORDERED: Magnesium Sulf 4 GM/100 ML IV 4,000 MG/100 ML BAG IVPB ONE (09:49)
[2022-03-31] MEDS: CMC:SitaGLIPtin 100 mg TAB (NF) PO SCH (12:27)
[2022-03-31] MEDS: Pantoprazole VIAL 40 MG VIAL IV SCH (23:22)
[2022-04-01 06:39] LABS: ABS Eosinophils 0.1 10^3/ul (0-0.6); ABS Lymphocytes 0.9 10^3/ul (1.0-4.8); ABS Monocytes 1.4 10^3/ul (0-0.8); ABS Neutrophils 7.9 10^3/ul (1.5-7.7); Eosinophil % 0.6 %; Hematocrit 30 % (42-52); Hemoglobin 10.7 g/dL (14.0-18.0); Mean Corpuscular HGB Conc 36 g/dL (31-36); Mean Corpuscular Hemoglobin 31 pg (27-31); Mean Corpuscular Volume 87 fL (80-94); Mean Platelet Volume 7.3 fL (7.4-10.4); Platelet Count 394 10^3/uL (150-450); Red Cell Distribution Width 14 % (10-15); White Blood Count 10.3 10^3/uL (3.5-10.8)
[2022-04-01 07:08] LABS: Calcium 8.2 mg/dL (8.6-10.3); Magnesium 1.9 mg/dL (1.9-2.7); Potassium 3.9 mmol/L (3.5-5.0); eGFR CKD-EPI 75.6 (>60)
[2022-04-01] MEDS: CMC:SitaGLIPtin 100 mg TAB (NF) PO SCH (09:07)
[2022-04-01 10:49] VITALS: BP 124/77
== END 2022-04-01 13:25 | DRG 177 ==
LOC: ED 09:19 → SUATTDRO 15:41 → EDHOLD 15:41 → ICU 15:59 → MED 03-22 11:33
PROVIDERS: ADMIT Surgery Surgical Critical Care; ATTEND Hospitalist

== ENCOUNTER 2022-04-04 15:02 | Inpatient (IN) ==
[2022-04-04] MEDS ORDERED: levETIRAcetam 1000MG IVPREMIX 1,000 MG/100 ML BAG IVPB ONE (15:16)
[2022-04-04] MEDS ORDERED: Iodixanol (CONTRAST) 320 MG/ML 100 ML SDV IV ONE (15:26)
[2022-04-04 15:30] LABS: ABS Lymphocytes 0.6 10^3/ul (1.0-4.8); ABS Monocytes 0.8 10^3/ul (0-0.8); ABS Neutrophils 8.1 10^3/ul (1.5-7.7); Eosinophil % 0.2 %; Hematocrit 30 % (42-52); Lymphocyte % 6.3 %; Mean Corpuscular HGB Conc 33 g/dL (31-36); Mean Corpuscular Hemoglobin 30 pg (27-31); Mean Corpuscular Volume 89 fL (80-94); Mean Platelet Volume 7.3 fL (7.4-10.4); Platelet Count 396 10^3/uL (150-450); Red Cell Distribution Width 14 % (10-15); White Blood Count 9.5 10^3/uL (3.5-10.8)
[2022-04-04 15:52] LABS: Activated Partial Thrombo Time 37.8 seconds (26.0-38.0); INR 1.5 (0.88-1.18)
[2022-04-04] MEDS ORDERED: Lactated Ringers 1000 ml BAG 500 ML IV ONE (16:04)
[2022-04-04] MEDS ORDERED: diazePAM INJ CARPUJECT 5 MG/ML SYRINGE IV ONE (16:13)
[2022-04-04 16:14] LABS: ALT 63 U/L (7-52); AST 56 U/L (13-39); Albumin 2.9 g/dL (3.2-5.2); Alkaline Phosphatase 104 U/L (35-149); Anion Gap 9 mmol/L (2-11); Blood Urea Nitrogen 45 mg/dL (6-24); CO2 Carbon Dioxide 29 mmol/L (22-32); Calcium 8.4 mg/dL (8.6-10.3); Chloride 93 mmol/L (101-111); Cholesterol 106 mg/dL; Globulin 2.8 g/dL (2-4); Glucose 461 mg/dL (70-100); LDL Cholesterol 26 mg/dL; Potassium 4.8 mmol/L (3.5-5.0); Sodium 131 mmol/L (135-145); Total Protein 5.7 g/dL (6.4-8.9); Triglycerides 335 mg/dL
[2022-04-04] MEDS ORDERED: Dextrose 50% Syringe 50 ml 25 GM/50 ML SYRINGE IV PUSH PRN (18:49)
[2022-04-04 19:34] LABS: Magnesium 1.7 mg/dL (1.9-2.7)
[2022-04-04] MEDS ORDERED: levETIRAcetam 500 MG IVPREMIX 500 MG/100 ML BAG IV SCH (21:00)
[2022-04-05 08:41] LABS: Hematocrit 29 % (42-52); Mean Corpuscular HGB Conc 34 g/dL (31-36); Mean Corpuscular Hemoglobin 30 pg (27-31); Mean Corpuscular Volume 87 fL (80-94); Mean Platelet Volume 7.6 fL (7.4-10.4); Platelet Count 344 10^3/uL (150-450); Red Blood Count 3.37 10^6 /uL (4.18-5.48); Red Cell Distribution Width 14 % (10-15); White Blood Count 7.9 10^3/uL (3.5-10.8)
[2022-04-05 09:00] LABS: Albumin 2.6 g/dL (3.2-5.2); Calcium 8.4 mg/dL (8.6-10.3); Globulin 2.7 g/dL (2-4); Total Bilirubin 0.5 mg/dL (0.2-1.0); Total Protein 5.3 g/dL (6.4-8.9); eGFR CKD-EPI 83.6 (>60)
[2022-04-05 09:12] LABS: TSH Ultra Thyroid Stim Horm 1.04 mcIU/mL (0.34-5.60)
[2022-04-05] MEDS: CMCS: SitaGLIPtin 100 mg TAB (NF) PO SCH (09:50)
[2022-04-05] MEDS: levETIRAcetam 500 MG IVPREMIX 500 MG/100 ML BAG IV SCH ×2 (10:00→21:56)
[2022-04-05 10:26] LABS: ABS Lymphocytes 0.7 10^3/ul (1.0-4.8); ABS Monocytes 0.7 10^3/ul (0-0.8); ABS Neutrophils 6.5 10^3/ul (1.5-7.7); Eosinophil % 0.6 %; Lymphocyte % 8.8 %
[2022-04-05] MEDS ORDERED: Metoprolol Tartrate 5 mg VIAL 5 ml VIAL (1 mg/ml) IV ONE (15:07)
[2022-04-05] MEDS ORDERED: Lactated Ringers 1000 ml BAG 1,000 ML IV ONE (15:15)
[2022-04-05 15:45] LABS: Urine Appearance Clear; Urine Color Yellow
[2022-04-05 15:46] LABS: Urine Bilirubin Negative (Negative); Urine Glucose 2+ (500mg/dL) (Negative); Urine Ketones Trace (Negative); Urine Nitrite Negative (Negative); Urine Protein 2+ (100 mg/dL) (Negative); Urine Urobilinogen 0.2 (Negative) (Negative)
[2022-04-05 15:52] LABS: Urine Bacteria Absent (Absent); Urine Red Blood Cell 3+(>10/hpf) (Absent); Urine Squamous Epithelial Cell Present (Absent); Urine White Blood Cell Trace(0-5/hpf) (Absent)
[2022-04-05] MEDS: Enoxaparin 30 MG/0.3 ML SYR SUBCUT SCH (21:12)
[2022-04-05 21:27] LABS: Total Iron Binding Capacity 189 mcg/dL (250-450); Transferrin 135 mg/dL (203-362)
[2022-04-05 21:29] LABS: % Iron Saturation 11 % (15-55); Iron < 20 ug/dL (50-212); Unsaturated Iron Binding 169 ug/dL
[2022-04-05 21:48] LABS: Ferritin 1284.3 ng/mL (24-336)
[2022-04-05 21:53] LABS: Vitamin B12 246 pg/mL (180-914)
[2022-04-06 07:21] LABS: Albumin 2.6 g/dL (3.2-5.2); Calcium 8.2 mg/dL (8.6-10.3); Globulin 2.5 g/dL (2-4); Potassium 4.1 mmol/L (3.5-5.0); Total Bilirubin 0.6 mg/dL (0.2-1.0); Total Protein 5.1 g/dL (6.4-8.9); eGFR CKD-EPI 85.6 (>60)
[2022-04-06] MEDS: levETIRAcetam 500 MG IVPREMIX 500 MG/100 ML BAG IV SCH ×2 (09:36→20:55)
[2022-04-06] MEDS: CMCS: SitaGLIPtin 100 mg TAB (NF) PO SCH (09:39)
[2022-04-06] MEDS: Enoxaparin 30 MG/0.3 ML SYR SUBCUT SCH (20:55)
[2022-04-07 07:22] LABS: Potassium 3.7 mmol/L (3.5-5.0); eGFR CKD-EPI 77.5 (>60)
[2022-04-07] MEDS: levETIRAcetam 500 MG IVPREMIX 500 MG/100 ML BAG IV SCH ×2 (08:20→20:03)
[2022-04-07] MEDS: CMCS: SitaGLIPtin 100 mg TAB (NF) PO SCH (10:38)
[2022-04-08] MEDS: CMCS: SitaGLIPtin 100 mg TAB (NF) PO SCH (10:21)
[2022-04-08] MEDS ORDERED: Sodium Phosphate ADULT ENEMA 133 ML BTL PR ONE (11:23)
[2022-04-09 06:42] LABS: Hematocrit 31 % (42-52); Hemoglobin 10.6 g/dL (14.0-18.0); Mean Corpuscular HGB Conc 35 g/dL (31-36); Mean Corpuscular Hemoglobin 30 pg (27-31); Mean Corpuscular Volume 87 fL (80-94); Mean Platelet Volume 7.6 fL (7.4-10.4); Platelet Count 294 10^3/uL (150-450); Red Cell Distribution Width 14 % (10-15); White Blood Count 6.3 10^3/uL (3.5-10.8)
[2022-04-09 07:58] LABS: ABS Eosinophils 0.2 10^3/ul (0-0.6); ABS Monocytes 0.8 10^3/ul (0-0.8); ABS Neutrophils 4.3 10^3/ul (1.5-7.7); Eosinophil % 3.4 %; Lymphocyte % 16.2 %
[2022-04-09 08:03] VITALS: BP 126/75
[2022-04-09] MEDS: CMCS: SitaGLIPtin 100 mg TAB (NF) PO SCH (09:38)
== END 2022-04-09 13:38 | DRG 64 ==
LOC: ED 15:02 → EDHOLD 17:37 → SUATTDRO 17:37 → MEDTELE 23:27
PROVIDERS: ADMIT Hospitalist; ATTEND Internal Medicine

== ENCOUNTER 2022-10-17 11:28 | Inpatient (IN) ==
[2022-10-17 12:50] LABS: ABS Eosinophils 0.1 10^3/uL (0.0-0.5); ABS Lymphocytes 1.1 10^3/uL (1.0-4.8); ABS Monocytes 0.4 10^3/uL (0.0-1.1); ABS Neutrophils 4.7 10^3/uL (1.5-7.6); ABS Nucleated RBC 0.01 10^3/ul; Eosinophil % 1.4 %; Hematocrit 27.2 % (38-53); Hemoglobin 8.8 g/dL (13.2-16.3); Lymphocyte % 16.9 %; Mean Corpuscular Hemoglobin 24.9 pg (27-33); Mean Corpuscular Hgb Conc 32.4 g/dL (31-36); Mean Corpuscular Volume 76.6 fL (80-97); Mean Platelet Volume 6.6 fL (7.5-11.2); Nucleated Red Blood Cells % 0.2 /100 WBC (0.0-0.4); Platelet Count 491 10^3/uL (150-450); Red Blood Count 3.56 10^6/uL (4.06-5.63); Red Cell Distribution Width 17.5 % (12-17); White Blood Count 6.3 10^3/uL (3.6-10.2)
[2022-10-17 12:59] LABS: INR 1.17 (0.88-1.18)
[2022-10-17 13:24] LABS: Rheumatoid Factor < 10 IU/mL (<15)
[2022-10-17 14:17] LABS: ALT 8 U/L (7-52); AST 13 U/L (13-39); Alkaline Phosphatase 80 U/L (35-149); Anion Gap 10 mmol/L (2-16); Blood Urea Nitrogen 35 mg/dL (6-24); C Reactive Protein 41.55 mg/L (<8.01); CO2 Carbon Dioxide 28 mmol/L (22-32); Calcium 9.1 mg/dL (8.6-10.3); Chloride 93 mmol/L (101-111); Creatinine, Serum 1.09 mg/dL (0.67-1.17); Globulin 2.9 g/dL (2-4); Glucose 88 mg/dL (70-100); Potassium 5.1 mmol/L (3.5-5.0); Sodium 131 mmol/L (135-145); Total Protein 5.9 g/dL (6.4-8.9); eGFR CKD-EPI 66.9 (>60)
[2022-10-17 15:24] LABS: Erythrocyte Sed Rate 53 mm/Hr (0-19)
[2022-10-17] MEDS ORDERED: Magnesium Hydroxide LIQ 30 ML UDC PO PRN (17:05)
[2022-10-17] MEDS ORDERED: Dextrose 50% Syringe 50 ml 25 GM/50 ML SYRINGE IV PUSH PRN (17:07)
[2022-10-17 17:13] LABS: Uric Acid 5.6 mg/dL (4.4-7.6)
[2022-10-17 17:17] LABS: LDH 166 U/L (140-271)
[2022-10-17] MEDS ORDERED: Iodixanol (CONTRAST) 320 MG/ML 100 ML SDV IV ONE (17:21)
[2022-10-17] MEDS: NS 0.9% 1000 ml BAG 1,000 ML IV SCH (18:02)
[2022-10-17 19:54] LABS: Hepatitis C Antibody Negative (Negative)
[2022-10-17 20:03] LABS: HIV 4th Generation Nonreactive (Nonreactive)
[2022-10-17] MEDS ORDERED: Insulin GLARGINE 100 un/ml 10 ml VIAL SUBCUT SCH (21:00)
[2022-10-18] MEDS: NS 0.9% 1000 ml BAG 1,000 ML IV SCH ×2 (03:05→12:05)
[2022-10-18] MEDS: Insulin GLARGINE 100 un/ml 10 ml VIAL SUBCUT SCH ×2 (09:18→21:29)
[2022-10-18 12:17] LABS: ABS Eosinophils 0.1 10^3/uL (0.0-0.5); ABS Lymphocytes 0.8 10^3/uL (1.0-4.8); ABS Monocytes 0.6 10^3/uL (0.0-1.1); ABS Neutrophils 6.3 10^3/uL (1.5-7.6); ABS Nucleated RBC 0.01 10^3/ul; Eosinophil % 1.4 %; Hematocrit 24.2 % (38-53); Lymphocyte % 10.7 %; Mean Corpuscular Hemoglobin 25.1 pg (27-33); Mean Corpuscular Hgb Conc 32.9 g/dL (31-36); Mean Corpuscular Volume 76.2 fL (80-97); Mean Platelet Volume 6.6 fL (7.5-11.2); Nucleated Red Blood Cells % 0.1 /100 WBC (0.0-0.4); Platelet Count 401 10^3/uL (150-450); Red Blood Count 3.17 10^6/uL (4.06-5.63); Red Cell Distribution Width 17.5 % (12-17); White Blood Count 7.9 10^3/uL (3.6-10.2)
[2022-10-18 12:34] LABS: Urine Appearance Cloudy; Urine Bilirubin Negative (Negative); Urine Blood 3+ (Negative); Urine Color Yellow; Urine Glucose Negative (Negative); Urine Ketones Negative (Negative); Urine Nitrite Negative (Negative); Urine Protein 3+(>=500 mg/dL) (Negative); Urine Specific Gravity 1.025 (1.002-1.030); Urine Urobilinogen Negative (Negative)
[2022-10-18 12:40] LABS: Anion Gap 5 mmol/L (2-16); Blood Urea Nitrogen 28 mg/dL (6-24); CO2 Carbon Dioxide 28 mmol/L (22-32); Calcium 8.2 mg/dL (8.6-10.3); Chloride 94 mmol/L (101-111); Glucose 141 mg/dL (70-100); Magnesium 1.3 mg/dL (1.9-2.7); Potassium 4.4 mmol/L (3.5-5.0); Sodium 127 mmol/L (135-145); eGFR CKD-EPI 87.3 (>60)
[2022-10-18 12:42] LABS: Urine Bacteria Absent (Absent); Urine Red Blood Cell 3+(>10/hpf) (Absent); Urine White Blood Cell 3+(>20/hpf) (Absent)
[2022-10-18 12:49] LABS: % Iron Saturation 9 % (15-55); .Transferrin 162 mg/dL (203-362); Iron < 20 ug/dL (50-212); Total Iron Binding Capacity 227 mcg/dL (250-450); Unsaturated Iron Binding 207 ug/dL
[2022-10-18 12:58] LABS: PSA Screen Ultra Sensitive 0.048 ng/mL (0-4.000)
[2022-10-18 13:01] LABS: Anisocytosis 2+
[2022-10-18 13:02] LABS: Hypochromasia 1+; Microcytosis 1+
[2022-10-18 13:06] LABS: Ferritin 256.9 ng/mL (24-336)
[2022-10-18] MEDS ORDERED: Magnesium Sulfate 2 gm BAG 2 GM/50 ML BAG IVPB ONE (15:49)
[2022-10-18] MEDS: Ferric Gluconate IV 125 MG in NS 0.9% 100 ml BAG 100 ML IVPB SCH (17:10)
[2022-10-19] MEDS: Ferric Gluconate IV 125 MG in NS 0.9% 100 ml BAG 100 ML IVPB SCH (09:40)
[2022-10-19] MEDS: Insulin GLARGINE 100 un/ml 10 ml VIAL SUBCUT SCH ×2 (09:40→21:44)
[2022-10-19 11:04] LABS: ABS Basophils 0.1 10^3/uL (0.0-0.1); ABS Eosinophils 0.1 10^3/uL (0.0-0.5); ABS Lymphocytes 0.7 10^3/uL (1.0-4.8); ABS Monocytes 0.6 10^3/uL (0.0-1.1); ABS Neutrophils 6.6 10^3/uL (1.5-7.6); ABS Nucleated RBC 0.01 10^3/ul; Eosinophil % 1.1 %; Hemoglobin 7.9 g/dL (13.2-16.3); Mean Corpuscular Hemoglobin 24.9 pg (27-33); Mean Corpuscular Hgb Conc 33.1 g/dL (31-36); Mean Corpuscular Volume 75.4 fL (80-97); Mean Platelet Volume 6.6 fL (7.5-11.2); Nucleated Red Blood Cells % 0.1 /100 WBC (0.0-0.4); Platelet Count 371 10^3/uL (150-450); Red Blood Count 3.18 10^6/uL (4.06-5.63); Red Cell Distribution Width 17.4 % (12-17); White Blood Count 8.1 10^3/uL (3.6-10.2)
[2022-10-19 11:21] LABS: CRP High Sensitivity 47.95 mg/L (<2.00); Calcium 8.2 mg/dL (8.6-10.3); Creatinine, Serum 0.94 mg/dL (0.67-1.17); Magnesium 1.6 mg/dL (1.9-2.7); Potassium 4.3 mmol/L (3.5-5.0); eGFR CKD-EPI 79.9 (>60)
[2022-10-19] MEDS ORDERED: Magnesium Sulf 4 GM/100 ML IV 4,000 MG/100 ML BAG IVPB ONE (14:25)
[2022-10-20] MEDS: Insulin GLARGINE 100 un/ml 10 ml VIAL SUBCUT SCH ×2 (08:48→22:20)
[2022-10-20] MEDS: Ferric Gluconate IV 125 MG in NS 0.9% 100 ml BAG 100 ML IVPB SCH (08:49)
[2022-10-20 09:10] LABS: ABS Eosinophils 0.1 10^3/uL (0.0-0.5); ABS Monocytes 0.9 10^3/uL (0.0-1.1); ABS Neutrophils 7.7 10^3/uL (1.5-7.6); ABS Nucleated RBC 0.01 10^3/ul; Hematocrit 25.2 % (38-53); Hemoglobin 8.4 g/dL (13.2-16.3); Mean Corpuscular Hemoglobin 25.1 pg (27-33); Mean Corpuscular Hgb Conc 33.3 g/dL (31-36); Mean Corpuscular Volume 75.2 fL (80-97); Nucleated Red Blood Cells % 0.1 /100 WBC (0.0-0.4); Platelet Count 395 10^3/uL (150-450); Red Blood Count 3.35 10^6/uL (4.06-5.63); Red Cell Distribution Width 17.9 % (12-17); White Blood Count 9.7 10^3/uL (3.6-10.2)
[2022-10-20 09:36] LABS: Calcium 8.6 mg/dL (8.6-10.3); Creatinine, Serum 1.03 mg/dL (0.67-1.17); Magnesium 2.2 mg/dL (1.9-2.7); Potassium 4.6 mmol/L (3.5-5.0); eGFR CKD-EPI 71.6 (>60)
[2022-10-20] MEDS ORDERED: Acetaminophen IV 1 GM/100ML 1,000 MG/100 ML BAG IV ONE (12:07)
[2022-10-20 12:20] LABS: Anti SSA/RO Antibody <0.2 U
[2022-10-20 12:26] LABS: Immunoglobulin A 278 mg/dL (61 - 356)
[2022-10-20 13:12] LABS: Complement C3 139 mg/dL (75 - 175)
[2022-10-20 13:20] LABS: DRVVT Screen Ratio 1.09 ratio (<1.20); LAC APTT 31 sec (25 - 37); LAC INR 1.1 (0.9-1.1); Prothrombin Time(LAC) 12.3 sec (9.4 - 12.5)
[2022-10-21 06:51] LABS: ABS Eosinophils 0.1 10^3/uL (0.0-0.5); ABS Lymphocytes 1.2 10^3/uL (1.0-4.8); ABS Monocytes 1.1 10^3/uL (0.0-1.1); ABS Neutrophils 9.5 10^3/uL (1.5-7.6); Hemoglobin 8.2 g/dL (13.2-16.3); Mean Corpuscular Hgb Conc 32.9 g/dL (31-36); Mean Corpuscular Volume 76.1 fL (80-97); Mean Platelet Volume 6.7 fL (7.5-11.2); Platelet Count 375 10^3/uL (150-450); Red Blood Count 3.29 10^6/uL (4.06-5.63); Red Cell Distribution Width 17.5 % (12-17); White Blood Count 11.9 10^3/uL (3.6-10.2)
[2022-10-21 07:10] LABS: Calcium 8.3 mg/dL (8.6-10.3); Creatinine, Serum 1.03 mg/dL (0.67-1.17); Magnesium 1.9 mg/dL (1.9-2.7); Potassium 4.3 mmol/L (3.5-5.0); eGFR CKD-EPI 71.6 (>60)
[2022-10-21] MEDS ORDERED: Lactated Ringers 1000 ml BAG 1,000 ML IV SCH (08:00)
[2022-10-21] MEDS ORDERED: Cefepime 2 GM in Dextrose 2 GM/50 ML BAG IV SCH (08:00)
[2022-10-21] MEDS: Ferric Gluconate IV 125 MG in NS 0.9% 100 ml BAG 100 ML IVPB SCH (08:51)
[2022-10-21] MEDS: Insulin GLARGINE 100 un/ml 10 ml VIAL SUBCUT SCH ×2 (08:54→21:45)
[2022-10-21] MEDS: Sulfamethox/Trimethoprim DS TAB 800/160 mg PO SCH ×2 (11:41→21:47)
[2022-10-21] MEDS: Sulfamethox/Trimethoprim SUSP 800-160mg/20 ML UDC PO SCH (21:45)
[2022-10-22 06:40] LABS: ABS Eosinophils 0.1 10^3/uL (0.0-0.5); ABS Monocytes 1.3 10^3/uL (0.0-1.1); ABS Neutrophils 11.4 10^3/uL (1.5-7.6); ABS Nucleated RBC 0.01 10^3/ul; Eosinophil % 0.4 %; Hematocrit 25.4 % (38-53); Hemoglobin 8.4 g/dL (13.2-16.3); Mean Corpuscular Hemoglobin 25.3 pg (27-33); Mean Corpuscular Hgb Conc 32.9 g/dL (31-36); Mean Corpuscular Volume 76.9 fL (80-97); Mean Platelet Volume 6.7 fL (7.5-11.2); Nucleated Red Blood Cells % 0.1 /100 WBC (0.0-0.4); Platelet Count 397 10^3/uL (150-450); Red Blood Count 3.31 10^6/uL (4.06-5.63); White Blood Count 13.7 10^3/uL (3.6-10.2)
[2022-10-22 07:04] LABS: Calcium 8.6 mg/dL (8.6-10.3); Magnesium 1.7 mg/dL (1.9-2.7); Potassium 4.5 mmol/L (3.5-5.0)
[2022-10-22 07:10] LABS: Creatinine, Serum 1.24 mg/dL (0.67-1.17); eGFR CKD-EPI 57.3 (>60)
[2022-10-22] MEDS ORDERED: Magnesium Sulfate 2 gm BAG 2 GM/50 ML BAG IVPB ONE (07:45)
[2022-10-22] MEDS ORDERED: Lactated Ringers 1000 ml BAG 1,000 ML IV ONE (07:46)
[2022-10-22] MEDS: Insulin GLARGINE 100 un/ml 10 ml VIAL SUBCUT SCH (08:56)
[2022-10-22] MEDS: Sulfamethox/Trimethoprim SUSP 800-160mg/20 ML UDC PO SCH ×2 (08:58→09:39)
[2022-10-22] MEDS: Ferric Gluconate IV 125 MG in NS 0.9% 100 ml BAG 100 ML IVPB SCH (10:09)
[2022-10-22] MEDS ORDERED: Azithromycin 500 mg/250 ml NS 500 MG/250 ML BAG IVPB SCH (16:00)
[2022-10-22] MEDS ORDERED: cefTRIAXone 1 gm/50 mL D5W 1 GM/50 ML BAG IV SCH (16:00)
[2022-10-22 16:13] LABS: C Reactive Protein 127.49 mg/L (<8.01)
[2022-10-22 16:27] LABS: Parvovirus (B19) IgG Antibody Positive (Negative); Parvovirus (B19) IgM Antibody Negative (Negative)
[2022-10-22] MEDS ORDERED: Furosemide 40 mg/4 ml IV VIAL IV ONE (18:34)
[2022-10-22] MEDS ORDERED: Acetaminophen IV 1 GM/100ML 1,000 MG/100 ML BAG IV ONE (20:22)
[2022-10-22] MEDS: Metoprolol Tartrate 5 mg VIAL 5 ml VIAL (1 mg/ml) IV SCH (20:29)
[2022-10-23] MEDS: Metoprolol Tartrate 5 mg VIAL 5 ml VIAL (1 mg/ml) IV SCH ×3 (03:23→16:41)
[2022-10-23 06:51] LABS: Calcium 8.6 mg/dL (8.6-10.3); Creatinine, Serum 1.61 mg/dL (0.67-1.17); Magnesium 2.1 mg/dL (1.9-2.7); Potassium 4.4 mmol/L (3.5-5.0); eGFR CKD-EPI 41.9 (>60)
[2022-10-23] MEDS ORDERED: Pantoprazole VIAL 40 MG VIAL IV SCH (09:00)
[2022-10-23] MEDS: Ferric Gluconate IV 125 MG in NS 0.9% 100 ml BAG 100 ML IVPB SCH (09:42)
[2022-10-23 09:56] LABS: Hematocrit 25.5 % (38-53); Hemoglobin 8.3 g/dL (13.2-16.3); Mean Corpuscular Hemoglobin 25.2 pg (27-33); Mean Corpuscular Hgb Conc 32.4 g/dL (31-36); Mean Corpuscular Volume 77.7 fL (80-97); Platelet Count 384 10^3/uL (150-450); Red Blood Count 3.28 10^6/uL (4.06-5.63); Red Cell Distribution Width 18.2 % (12-17); White Blood Count 13.2 10^3/uL (3.6-10.2)
[2022-10-23] MEDS ORDERED: Piperacillin/Tazobac ADVAN 3.375 GM in NS 0.9% 100 ml BAG 100 ML IV ONE (11:22)
[2022-10-23] MEDS ORDERED: Lactated Ringers 1000 ml BAG 1,000 ML IV ONE (11:30)
[2022-10-23] MEDS ORDERED: Zosyn per Pharmacy NOTE FOLLOW UP SCH (12:00)
[2022-10-23] MEDS ORDERED: Acetaminophen IV 1 GM/100ML 1,000 MG/100 ML BAG IV PRN (14:27)
[2022-10-23] MEDS ORDERED: Albuterol HFA INHALER 8 gm MDI INH PRN (16:26)
[2022-10-23] MEDS ORDERED: ZOSYN 3.375 GM Q8H per EXTENDED INFUSION IV SCH (17:00)
[2022-10-23] MEDS ORDERED: Morphine ORAL CONCENTRATE 5 MG/0.25 ML ORAL.SYRIN SL PRN (17:50)
[2022-10-23] MEDS ORDERED: Polyethylene Glycol 3350 17 GM PACKET PO PRN (17:52)
[2022-10-23] MEDS ORDERED: Senna TAB 8.6 mg TAB PO PRN (17:52)
[2022-10-23] MEDS ORDERED: Atropine 1% (ORAL/SL) 15 ML BTL SL PRN (17:52)
[2022-10-23] MEDS ORDERED: Ondansetron ODT 4 mg TAB 4 MG TAB SL PRN (17:52)
[2022-10-23 18:22] VITALS: BP 127/77
[2022-10-24 12:05] LABS: Rapid COVID-19 Molecular Undetected (Undetected)
== END 2022-10-24 15:58 | disposition hospice, home (50) | DRG 813 ==
LOC: EDHOLD 11:28 → ED 11:28 → SUATTDRO 15:02 → EDHOLD 16:35 → MED 17:18
PROVIDERS: ADMIT Internal Medicine; ATTEND Internal Medicine